=== PATIENT | male | born 1955 | race Caucasian/White ===

== ENCOUNTER 2017-05-17 07:48 | Emergency (ER) | payer MEDICAID, MEDICARE ==
--- NOTE | 2017-05-17 09:36 | RADIOLOGY REPORT (SQ) ---
EXAM DESCRIPTION: CHEST PA/LAT COMPLETED DATE/TIME: 05/17/2017 8:40 am REASON FOR STUDY: cough, fever COMPARISON: CT abdomen pelvis 10/21/2014 Two-view chest 04/21/2015, 11/06/2015 EXAM PARAMETERS: NUMBER OF VIEWS: two views TECHNIQUE: Digital Frontal and Lateral radiographic views of the chest acquired. RADIATION DOSE: NA LIMITATIONS: none FINDINGS: LUNGS AND PLEURA: No opacities, masses or pneumothorax. No pleural effusion. MEDIASTINUM AND HILAR STRUCTURES: Promise unremarkable. Small retrocardiac hiatal hernia. HEART AND VASCULAR STRUCTURES: Heart normal size. No evidence for failure. Old sternotomy and CABG BONES: No acute findings. HARDWARE: Lower cervical fusion. Old T12 compression deformity unchanged from 2014 OTHER: No other significant finding. IMPRESSION: Old sternotomy and CABG. Small hiatal hernia. No acute infiltrates TECHNICAL DOCUMENTATION: JOB ID: [id number] [email or web address]- All Rights Reserved
[2017-05-17] MEDS ORDERED: IPRATROPIUM/ALBUTEROL 0.5-2.5 MG/3 ML AMPUL NEB ONE (10:08)
--- NOTE | 2017-05-17 10:11 | ER Document Report ---
ED General - General Chief Complaint: Productive Cough Stated Complaint: COUGH Time Seen by Provider: 05/17/17 08:02 Notes: 62 yr old male presents today with complaints of dry cough, nasal congestion, sinus pressure and headache x1 day Pain 5/10, achy and constant. Denies any rashes. Tried otc cold medications without relief. reports fevers and chills. Eating and drinking ok. Worse when laying flat, better when upright. Vaccinations are UTD. Denies any cp, sob, n/v/d, abd pain, dysuria and hemturia. former smoker, quit 8 months ago. smoker [id number] years. TRAVEL OUTSIDE OF THE [place] IN LAST 30 DAYS: No - Related Data Allergies/Adverse Reactions: ampicillin [Ampicillin] Allergy (Verified 05/17/17 07:51) Past Medical History - General Information source: Patient, Friend - Social History Smoking Status: Former Smoker Chew tobacco use (# tins/day): No Frequency of alcohol use: None Drug Abuse: None Family History: Reviewed & Not Pertinent Patient has suicidal ideation: No Patient has homicidal ideation: No - Past Medical History Cardiac Medical History: Reports: Hx Coronary Artery Disease, Hx Hypercholesterolemia, Hx Hypertension, Hx Peripheral Vascular Disease Renal/ Medical History: Denies: Hx Peritoneal Dialysis GI Medical History: Reports: Hx Gastroesophageal Reflux Disease Past Surgical History: Reports: Hx Cardiac Surgery, Hx Coronary Artery Bypass Graft, Hx Open Heart Surgery - TRIPLE BYPASS 11/03, Hx Orthopedic Surgery - Descriptive and cervical spine, Hx Vascular Surgery - Stents to bilateral lower extremities, L. CAROTID ENDARTERECTOMY - Immunizations Hx Diphtheria, Pertussis, Tetanus Vaccination: Yes Review of Systems - Review of Systems Constitutional: See HPI Cardiovascular: No symptoms reported Respiratory: See HPI, Cough Gastrointestinal: No symptoms reported Genitourinary: No symptoms reported Male Genitourinary: No symptoms reported Musculoskeletal: No symptoms reported Skin: No symptoms reported Hematologic/Lymphatic: No symptoms reported Neurological/Psychological: No symptoms reported -: Yes All other systems reviewed and negative Physical Exam - Vital signs Vitals: Temp Pulse Resp BP Pulse Ox 97.7 F 74 18 127/88 H 99 05/17/17 07:55 05/17/17 07:55 05/17/17 07:55 05/17/17 07:55 05/17/17 07:55 - General General appearance: Appears well In distress: None - HEENT Head: Normocephalic Cornea: Normal Pupils: PERRL Ears: Normal External canal: Normal Tympanic membrane: Bulging Sinus: Normal Nasal: Normal Mouth/Lips: Normal Pharynx: Erythema Neck: Normal - Respiratory Respiratory status: No respiratory distress Chest status: Nontender Breath sounds: Nonproductive cough, Wheezing - cleared after breathing treatment Chest palpation: Normal - Cardiovascular Rhythm: Regular Heart sounds: Normal auscultation Murmur: No Normal capillary refill: Yes - Abdominal Inspection: Normal Distension: No distension Bowel sounds: Normal Tenderness: Nontender - Back Back: Normal - Skin Skin Temperature: Warm Skin Moisture: Dry Skin Color: Normal Course - Re-evaluation Re-evalutation: After performing a Medical Screening Examination, I estimate there is LOW risk for ACUTE CORONARY SYNDROME, PULMONARY EMBOLI, RESPIRATORY FAILURE, SEPSIS OR MENINGITIS, thus I consider the discharge disposition reasonable. I have reevaluated this patient multiple times and no significant life threatening changes are noted. The patient and I have discussed the diagnosis and risks, and we agree with discharging home with close follow-up. We also discussed returning to the Emergency Department immediately if new or worsening symptoms occur. We have discussed the symptoms which are most concerning (e.g., changing or worsening pain, trouble swallowing or breathing, neck stiffness, fever) that necessitate immediate return. - Vital Signs Vital signs: Temp Pulse Resp BP Pulse Ox 97.6 F 63 18 131/85 H 99 05/17/17 10:45 05/17/17 10:45 05/17/17 07:55 05/17/17 10:45 05/17/17 10:45 Discharge - Discharge Clinical Impression: URI with cough and congestion Clinical Impression: (Ruled Out): Acute bacterial bronchitis Condition: Good Disposition: HOME, SELF-CARE Instructions: Upper Respiratory Illness ([facility]) Additional Instructions: take medication as directed follow up with PCP within 3 days return to ER if s/s worsen Prescriptions: Benzonatate [Tessalon Perle 100 mg Capsule] 100 mg PO Q8HP PRN #20 cap PRN Reason: Albuterol Sulfate [Ventolin Hfa] 1 - 2 puff IH Q4 PRN #1 [id number] PRN Reason: Prednisone 20 mg PO BID #10 tablet Referrals: DIANA STRONG DO [Primary Care Provider] - Follow up as needed
[2017-05-17 10:54] VITALS: BP 131/85
== END 2017-05-17 10:55 | disposition home or self-care (01) ==
LOC: ER 07:48
DX: J06.9 Acute upper respiratory infection, unspecified (principal); R05 Cough; R09.81 Nasal congestion; R51 Headache; Z87.891 Personal history of nicotine dependence
CPT/HCPCS: 94640; 99283; 71020; A9270; J7620

== ENCOUNTER 2017-05-23 07:44 | Emergency (ER) | payer MEDICARE ==
[2017-05-23] MEDS ORDERED: ACETAMINOPHEN 325 MG TABLET PO ONE (08:43)
--- NOTE | 2017-05-23 09:08 | RADIOLOGY REPORT (SQ) ---
EXAM DESCRIPTION: CHEST PA/LAT COMPLETED DATE/TIME: 05/23/2017 8:52 am REASON FOR STUDY: Cough, Shortness of Breath COMPARISON: 05/17/2017 NUMBER OF VIEWS: Two view. TECHNIQUE: Frontal and lateral radiographic views of the chest acquired. LIMITATIONS: None. FINDINGS: LUNGS AND PLEURA: No opacities, masses or pneumothorax. No pleural effusion. MEDIASTINUM AND HILAR STRUCTURES: No masses or contour abnormalities. HEART AND VASCULATURE: Heart normal size. No evidence for failure. Prior CABG. BONES: No acute findings. HARDWARE: CABG hardware. OTHER: No other significant finding. IMPRESSION: NO SIGNIFICANT RADIOGRAPHIC FINDING IN THE CHEST. PRIOR CABG. TECHNICAL DOCUMENTATION: JOB ID: [id number] [employer] All Rights Reserved
--- NOTE | 2017-05-23 09:43 | ER Document Report ---
ED Respiratory Problem - General Mode of Arrival: Ambulatory Information source: Patient TRAVEL OUTSIDE OF THE [place] IN LAST 30 DAYS: No - General Chief Complaint: Productive Cough Stated Complaint: COUGH Time Seen by Provider: 05/23/17 09:28 Notes: Patient is a 62-year-old male that presents to the emergency department today for a persistent cough for the last 6 days. Patient was seen here 6 days ago for the same symptoms and was discharged with a prescription for Tessalon Perles , prednisone, and albuterol. Patient states he did not fill the Tessalon or albuterol inhalers as he cannot afford them. Patient states his has an albuterol inhaler so he tried it once a day which did not seem to help. Patient states he is now having light green colored sputum production. Patient states he feels like he got worse when he ran out of prednisone. (ARISTEO ADAN) - Related Data Allergies/Adverse Reactions: ampicillin [Ampicillin] Allergy (Verified 05/17/17 07:51) Past Medical History - General Information source: Patient, [facility] Records - Social History Smoking Status: Former Smoker Cigarette use (# per day): No Frequency of alcohol use: None Drug Abuse: None Lives with: Family Family History: Reviewed & Not Pertinent Patient has suicidal ideation: No Patient has homicidal ideation: No - Past Medical History Cardiac Medical History: Reports: Hx Coronary Artery Disease, Hx Hypercholesterolemia, Hx Hypertension, Hx Peripheral Vascular Disease GI Medical History: Reports: Hx Gastroesophageal Reflux Disease Past Surgical History: Reports: Hx Cardiac Surgery, Hx Coronary Artery Bypass Graft, Hx Open Heart Surgery - TRIPLE BYPASS 11/03, Hx Orthopedic Surgery - Descriptive and cervical spine, Hx Vascular Surgery - Stents to bilateral lower extremities, L. CAROTID ENDARTERECTOMY - Immunizations Hx Diphtheria, Pertussis, Tetanus Vaccination: Yes Review of Systems - Review of Systems Constitutional: denies: Fever EENT: No symptoms reported Cardiovascular: No symptoms reported Respiratory: See HPI, Cough Gastrointestinal: No symptoms reported Genitourinary: No symptoms reported Male Genitourinary: No symptoms reported Musculoskeletal: No symptoms reported Skin: No symptoms reported Hematologic/Lymphatic: No symptoms reported Neurological/Psychological: No symptoms reported -: Yes All other systems reviewed and negative Physical Exam - Vital signs Vitals: Temp Pulse Resp BP Pulse Ox 98.2 F 101 H 18 139/92 H 100 05/23/17 07:50 05/23/17 07:50 05/23/17 07:50 05/23/17 07:50 05/23/17 07:50 - Notes Notes: Physical Exam: General: Alert, appears well. HEENT: Normocephalic. Atraumatic. PERRL. Extraocular movements intact. Oropharynx clear. Neck: Supple. Non-tender. Respiratory: No respiratory distress. Rhonchi bilaterally, faint wheeze bilaterally consistent with extensive smoking history. Cardiovascular: Regular rate and rhythm. Abdominal: Normal Inspection. Non-tender. No distension. Normal Bowel Sounds. Back: Non-tender. No deformity or step off. Extremities: Moves all four extremities. Upper extremities: Normal inspection. Normal ROM. Lower extremities: Normal inspection. No edema. Normal ROM. Neurological: Normal cognition. AAOx4. Normal speech. Psychological: Normal affect. Normal Mood. Skin: Warm. Dry. Normal color. (ARISTEO ADAN) Course - Re-evaluation Re-evalutation: 05/23/17 11:42 After the DuoNeb treatment, the patient's lungs are clear when I have him cough. He does have a dry cough. He states that his breathing to him feels much better when he breathes in deep after the breathing treatment. (SAVANNAH RILEY) - Vital Signs Vital signs: Temp Pulse Resp BP Pulse Ox 97.8 F 95 16 150/82 H 98 05/23/17 11:34 05/23/17 11:34 05/23/17 11:34 05/23/17 11:34 05/23/17 11:34 Discharge - Discharge Clinical Impression: Acute bronchitis with bronchospasm Condition: Stable Disposition: HOME, SELF-CARE Additional Instructions: Bronchitis with Bronchospasm (Wheezing) You have bronchitis with bronchospasm (wheezing). Sometimes people develop wheezing with a chest cold. This occurs either because of an underlying tendency toward asthma or because the virus itself irritates the bronchial tubes. This irritation causes cough, shortness of breath, and wheezing. Emergency treatment of bronchospasm may include adrenaline shots or bronchodilator aerosol. You may feel lightheaded and have a rapid pulse for an hour or two. Rest and get plenty of fluids. At home, we'll treat you with a bronchodilator inhaler. Corticosteroids may be required for some patients. Until you recover, avoid chemical fumes, dusts, pollens, and exercising in very cold or dry air. If you smoke, stop now! Most cases of bronchitis get better without antibiotics. We prescribe antibiotics when we believe bacteria are damaging your airways, or if there's high risk the bronchitis will worsen into pneumonia. Increase your fluid intake. A cool mist humidifier may make your lungs more comfortable. An expectorant (cough medicine that loosens phlegm) can help. Repeated episodes of bronchitis and bronchospasm may result in lung damage -- for example, chronic bronchitis, recurrent pneumonias, or emphysema. If you develop a fever, increased wheezing, chest pain, or severe shortness of breath, you should contact the doctor immediately. //////////////////////////////////////////////////////////////////////////////// //////////////////////////////////////////////////////////////////////////////// ////////////////// Start the Prednisone and the Azithromycin tomorrow as prescribed. 2 puffs every 4 hours for today and then 2 puffs every 4-6 hours as needed starting tomorrow. Try Robitussin-DM to help suppress your cough. Drink plenty of fluids and get plenty of rest. Follow-up with your doctor if not improving next week. RETURN TO THE EMERGENCY ROOM IF ANY NEW OR WORSENING SYMPTOMS. Prescriptions: Azithromycin [Zithromax 250 mg Tablet] 250 mg PO DAILY #4 tablet Prednisone [Deltasone 10 mg Tablet] 10 mg PO ASDIR PRN #21 tablet PRN Reason: Referrals: DIANA STRONG DO [Primary Care Provider] - Follow up as needed Scribe Attestation: 05/23/17 11:46 I personally performed the services described in the documentation, reviewed and edited the documentation which was dictated to the scribe in my presence, and it accurately records my words and actions. (SAVANNAH RILEY) Scribe Documentation - Scribe Written by Addy:: Addy Hou, 05/23/2017 1034 acting as scribe for :: Cristel
[2017-05-23] MEDS ORDERED: PREDNISONE 20 MG TABLET PO ONE (09:44)
[2017-05-23] MEDS ORDERED: IPRATROPIUM/ALBUTEROL 0.5-2.5 MG/3 ML AMPUL NEB ONE (09:44)
[2017-05-23] MEDS ORDERED: AZITHROMYCIN 250 MG TABLET PO ONE (09:45)
[2017-05-23 11:35] VITALS: BP 150/82
[2017-05-23] MEDS ORDERED: ALBUTEROL SULFATE HFA (90 MCG/PUFF) 8 GM MDI (1 MDI/ER DISP) IH ONE (11:47)
== END 2017-05-23 12:00 | disposition home or self-care (01) ==
LOC: ER 07:44
DX: J20.9 Acute bronchitis, unspecified (principal); R05 Cough; Z87.891 Personal history of nicotine dependence
CPT/HCPCS: 94640; 99284; 87804; 71020; A9270 ×4; J3490; J7512; J7620

== ENCOUNTER 2017-11-29 21:33 | Emergency (ER) | payer MEDICARE, OTHER ==
--- NOTE | 2017-11-29 23:09 | ER Document Report ---
ED Medical Screen (RME) - General Chief Complaint: Productive Cough Stated Complaint: COUGH/HEAD PAIN Time Seen by Provider: 11/29/17 23:01 Mode of Arrival: Ambulatory Information source: Patient Notes: Patient is a 62-year-old male who presents with 1 day history of productive cough, chills, nasal congestion and right ear pain. Patient reports that he is coughing up whitish green mucus. Patient reports he has had a history of pneumonia in the past and feels like this is similar. Patient also reports medical history of triple bypass in 2013 and a history of DVTs. Exam: Lung sounds clear to auscultation bilaterally, no wheezes or rhonchi noted. No tenderness to palpation over maxillary and frontal sinuses. Right tympanic membrane obscured by large amount of cerumen. Left tympanic membrane unremarkable. I have greeted and performed a rapid initial assessment of this patient. A comprehensive ED assessment and evaluation of the patient, analysis of test results and completion of the medical decision making process will be conducted by additional ED providers. Dictation of this chart was performed using voice recognition software; therefore, there may be some unintended grammatical errors. TRAVEL OUTSIDE OF THE [place] IN LAST 30 DAYS: No - Related Data Allergies/Adverse Reactions: ampicillin [Ampicillin] Allergy (Verified 05/17/17 07:51) Past Medical History - General Information source: Patient - Social History Family history: Reviewed & Not Pertinent - Past Medical History Cardiac Medical History: Reports: Hx Coronary Artery Disease, Hx Hypercholesterolemia, Hx Hypertension, Hx Peripheral Vascular Disease Renal/ Medical History: Denies: Hx Peritoneal Dialysis GI Medical History: Reports: Hx Gastroesophageal Reflux Disease Past Surgical History: Reports: Hx Cardiac Surgery, Hx Coronary Artery Bypass Graft, Hx Open Heart Surgery - TRIPLE BYPASS 11/03, Hx Orthopedic Surgery - Descriptive and cervical spine, Hx Vascular Surgery - Stents to bilateral lower extremities, L. CAROTID ENDARTERECTOMY - Immunizations Hx Diphtheria, Pertussis, Tetanus Vaccination: Yes Physical Exam - Vital signs Vitals: Temp Pulse Resp BP Pulse Ox 98.9 F 78 16 133/90 H 98 11/29/17 21:46 11/29/17 21:46 11/29/17 21:46 11/29/17 21:46 11/29/17 21:46 Course - Vital Signs Vital signs: Temp Pulse Resp BP Pulse Ox 98.9 F 78 16 133/90 H 98 11/29/17 21:46 11/29/17 21:46 11/29/17 21:46 11/29/17 21:46 11/29/17 21:46 Doctor's Discharge - Discharge Referrals: DIANA STRONG DO [Primary Care Provider] - Follow up as needed
--- NOTE | 2017-11-29 23:23 | ER Document Report ---
ED Respiratory Problem - General Chief Complaint: Productive Cough Stated Complaint: COUGH/HEAD PAIN Time Seen by Provider: 11/29/17 23:01 Mode of Arrival: Ambulatory Notes: The patient is a 62-year-old male, former smoker, CAD, presents with 2 days of a dry cough and 8 hours of a productive cough. He is also having sinus congestion and right ear fullness. He is concerned that he developed pneumonia. He denies fevers, chills, nausea, vomiting, chest pain, hemoptysis, back pain, syncope, leg swelling or recent travel. His has similar symptoms. TRAVEL OUTSIDE OF THE [place] IN LAST 30 DAYS: No - Related Data Allergies/Adverse Reactions: ampicillin [Ampicillin] Allergy (Verified 05/17/17 07:51) Past Medical History - General Information source: Patient - Social History Smoking Status: Former Smoker Family History: Reviewed & Not Pertinent - Past Medical History Cardiac Medical History: Reports: Hx Coronary Artery Disease, Hx Hypercholesterolemia, Hx Hypertension, Hx Peripheral Vascular Disease Renal/ Medical History: Denies: Hx Peritoneal Dialysis GI Medical History: Reports: Hx Gastroesophageal Reflux Disease Past Surgical History: Reports: Hx Cardiac Surgery, Hx Coronary Artery Bypass Graft, Hx Open Heart Surgery - TRIPLE BYPASS 11/03, Hx Orthopedic Surgery - Descriptive and cervical spine, Hx Vascular Surgery - Stents to bilateral lower extremities, L. CAROTID ENDARTERECTOMY - Immunizations Hx Diphtheria, Pertussis, Tetanus Vaccination: Yes Review of Systems - Review of Systems Notes: REVIEW OF SYSTEMS: CONSTITUTIONAL: -fevers, -chills EENT: -eye pain, -difficulty swallowing, +right ear fullness, +nasal congestion CARDIOVASCULAR: -chest pain, -syncope. RESPIRATORY: +cough, -SOB GASTROINTESTINAL: -abdominal pain, -nausea, -vomiting, -diarrhea GENITOURINARY: -dysuria, -hematuria MUSCULOSKELETAL: -back pain, -neck pain SKIN: -rash or skin lesions. HEMATOLOGIC: -easy bruising or bleeding. LYMPHATIC: -swollen, enlarged glands. NEUROLOGICAL: -altered mental status or loss of consciousness, -headache, - neurologic symptoms PSYCHIATRIC: -anxiety, -depression. ALL OTHER SYSTEMS REVIEWED AND NEGATIVE. Physical Exam - Vital signs Vitals: Temp Pulse Resp BP Pulse Ox 98.9 F 78 16 133/90 H 98 11/29/17 21:46 11/29/17 21:46 11/29/17 21:46 11/29/17 21:46 11/29/17 21:46 - Notes Notes: PHYSICAL EXAMINATION: GENERAL: Well-appearing, well-nourished and in no acute distress. HEAD: Atraumatic, normocephalic. EYES: Pupils equal round and reactive to light, extraocular movements intact, sclera anicteric, conjunctiva are normal. ENT: Right ear with cerumen, unable to visualize right TM. Normal left TM. nares patent with swollen turbinates, oropharynx clear without exudates. Moist mucous membranes. NECK: Normal range of motion, supple without lymphadenopathy LUNGS: No respiratory distress. Faint end-expiratory wheezes. HEART: Regular rate and rhythm without murmurs ABDOMEN: Soft, nontender, normoactive bowel sounds. No guarding, no rebound. No masses appreciated. EXTREMITIES: Normal range of motion, no pitting or edema. No cyanosis. NEUROLOGICAL: Cranial nerves grossly intact. Normal speech, normal gait. Normal sensory and motor exams. PSYCH: Normal mood, normal affect. SKIN: Warm, Dry, normal turgor, no rashes or lesions noted. Course - Re-evaluation Re-evalutation: Patient appears well and is in no respiratory distress. His mild end- expiratory wheeze resolved after DuoNebs and steroids. Chest x-ray does not show any focal infiltrates and he does not have a fever. No risk factors for PE. Instructed him about treatment of his suspected viral bronchitis with steroids and albuterol. He will follow-up with his primary care physician for recheck of his symptoms this week. - Vital Signs Vital signs: Temp Pulse Resp BP Pulse Ox 98.9 F 78 16 133/90 H 98 11/29/17 21:46 11/29/17 21:46 11/29/17 21:46 11/29/17 21:46 11/29/17 21:46 - Diagnostic Test Radiology reviewed: Image reviewed, Reports reviewed Radiology results interpreted by me: CXR: NAD Discharge - Discharge Clinical Impression: Bronchitis Condition: Stable Additional Instructions: BRONCHITIS WITH BRONCHOSPASM (WHEEZING): You have bronchitis with bronchospasm (wheezing). Sometimes people develop wheezing with a chest cold. This occurs either because of an underlying tendency toward asthma or because the virus itself irritates the bronchial tubes. This irritation causes cough, shortness of breath, and wheezing. Emergency treatment of bronchospasm may include adrenaline shots or bronchodilator aerosol. You may feel lightheaded and have a rapid pulse for an hour or two. Rest and get plenty of fluids. At home, we'll treat you with a bronchodilator inhaler. Corticosteroids may be required for some patients. Until you recover, avoid chemical fumes, dusts, pollens, and exercising in very cold or dry air. If you smoke, stop now! Most cases of bronchitis get better without antibiotics. We prescribe antibiotics when we believe bacteria are damaging your airways, or if there's high risk the bronchitis will worsen into pneumonia. Increase your fluid intake. A cool mist humidifier may make your lungs more comfortable. An expectorant (cough medicine that loosens phlegm) can help. Repeated episodes of bronchitis and bronchospasm may result in lung damage -- for example, chronic bronchitis, recurrent pneumonias, or emphysema. If you develop a fever, increased wheezing, chest pain, or severe shortness of breath, you should contact the doctor immediately. INHALED BRONCHODILATORS: You have received a treatment of and/or prescription for an inhaled bronchodilator -- a medication which stimulates the airways in the lung to dilate. This improves the flow of air in asthma, bronchitis, and emphysema. These medicines have some similarity to adrenaline, and can cause similar side effects: shakiness, racing heart, and a sense of nervousness. These side effects decrease with time. Contact your doctor if these side effects are severe. Do not over-use the medicine. Too-frequent use of the inhaler may make it ineffective. Call your doctor if the inhaler is not controlling your symptoms at the prescribed doses. STEROID MEDICATION: You have been given an injection of or oral medicine of the cortisone/ steroid class. This medication is used to control inflammation or allergy. Blayne t is usually only given for a short period of time, until the acute process subsides. There are usually no side effects from short-term use of cortisone-like medications. Some persons feel an increased sense of well-being and are not sleepy at bedtime. Long-term use of cortisone medications is best avoided, unless required for a severe condition. If your condition does not remit, or relapses after the course of corticosteroid medication, you should consult your physician. USE OF ACETAMINOPHEN (Tylenol): Acetaminophen may be taken for pain relief or fever control. It's much safer than aspirin, offering a wider range of "safe" dosages. It is safe during . Some brand names are Tylenol, Panadol, Datril, Anacin 3, Tempra, and Liquiprin. Acetaminophen can be repeated every four hours. The following are maximum recommended dosages: >89 pounds or adults 650 mg to 900 mg Acetaminophen can be repeated every four hours. Maximum dose not to exceed 4000 mg a day. SMOKING: If you smoke, you should stop smoking. The tar and chemicals in cigarette smoke are harmful. Smoking has been shown to cause: emphysema chronic bronchitis lung cancer mouth and throat cancer stomach and pancreas cancer premature aging defects In addition, smoking increases ear and lung infections in children of smokers. FOLLOW-UP CARE: If you have been referred to a physician for follow-up care, call the physician s office for an appointment as you were instructed or within the next two days. If you experience worsening or a significant change in your symptoms, notify the physician immediately or return to the Emergency Department at any time for re-evaluation. Prescriptions: Albuterol Sulfate [Proair HFA Inhalation Aerosol 8.5 gm MDI] 2 puff IH Q4H PRN # 1 mdi PRN Reason: Prednisone [Deltasone 20 mg Tablet] 3 tab PO DAILY 4 Days tablet Forms: Elevated Blood Pressure Referrals: DIANA STRONG DO [Primary Care Provider] - Follow up as needed
[2017-11-29] MEDS ORDERED: PREDNISONE 20 MG TABLET PO ONE (23:46)
[2017-11-29] MEDS ORDERED: ALBUTEROL SULFATE HFA (90 MCG/PUFF) 8 GM MDI (1 MDI/ER DISP) IH PRN (23:46)
[2017-11-29] MEDS ORDERED: IPRATROPIUM/ALBUTEROL 0.5-2.5 MG/3 ML AMPUL NEB ONE (23:46)
[2017-11-30 01:18] VITALS: BP 108/76
== END 2017-11-30 01:22 | disposition home or self-care (01) ==
LOC: ER 21:33
DX: J40 Bronchitis, not specified as acute or chronic (principal); R06.2 Wheezing; R05 Cough; R09.81 Nasal congestion; I25.10 Atherosclerotic heart disease of native coronary artery without angina pectoris; I10 Essential (primary) hypertension; Z87.891 Personal history of nicotine dependence; Z88.0 Allergy status to penicillin
CPT/HCPCS: 94640; 99283; 71046; A9270 ×2; J3490; J7512; J7620

== ENCOUNTER 2017-12-08 18:03 | Emergency (ER) | payer MEDICARE, OTHER ==
--- NOTE | 2017-12-08 18:39 | ER Document Report ---
ED Medical Screen (RME) - General Chief Complaint: Cough Stated Complaint: COUGH Time Seen by Provider: 12/08/17 18:31 Notes: Patient is a 62-year-old male, past medical history former smoker, CAD, presents with increased cough and shortness of breath over the past few days. He was seen in the ER 9 days ago for similar symptoms and history for bronchitis with steroids and DuoNeb's mildly better, but then felt worse. He used albuterol 1 hour prior to arrival. PE: Tachycardia, mild tachypnea, lungs CTAB I have greeted and performed a rapid initial assessment of this patient. A comprehensive ED assessment and evaluation of the patient, analysis of test results and completion of the medical decision making process will be conducted by additional ED providers. TRAVEL OUTSIDE OF THE [place] IN LAST 30 DAYS: No - Related Data Allergies/Adverse Reactions: ampicillin [Ampicillin] Allergy (Verified 12/08/17 18:34) Past Medical History - Social History Chew tobacco use (# tins/day): No Frequency of alcohol use: None Drug Abuse: None Family history: Reviewed & Not Pertinent - Past Medical History Cardiac Medical History: Reports: Hx Coronary Artery Disease, Hx Hypercholesterolemia, Hx Hypertension, Hx Peripheral Vascular Disease Pulmonary Medical History: Reports: Hx Pneumonia - 2016 Renal/ Medical History: Denies: Hx Peritoneal Dialysis GI Medical History: Reports: Hx Gastroesophageal Reflux Disease Past Surgical History: Reports: Hx Cardiac Surgery, Hx Coronary Artery Bypass Graft, Hx Open Heart Surgery - TRIPLE BYPASS 11/03, Hx Orthopedic Surgery - Descriptive and cervical spine, Hx Vascular Surgery - Stents to bilateral lower extremities, L. CAROTID ENDARTERECTOMY - Immunizations Hx Diphtheria, Pertussis, Tetanus Vaccination: Yes Physical Exam - Vital signs Vitals: Temp Pulse Resp BP Pulse Ox 98.4 F 110 H 22 H 153/90 H 98 12/08/17 18:08 12/08/17 18:08 12/08/17 18:08 12/08/17 18:08 12/08/17 18:08 Course - Vital Signs Vital signs: Temp Pulse Resp BP Pulse Ox 98.4 F 110 H 22 H 153/90 H 98 12/08/17 18:08 12/08/17 18:08 12/08/17 18:08 12/08/17 18:08 12/08/17 18:08 Doctor's Discharge - Discharge Referrals: DIANA STRONG DO [Primary Care Provider] - Follow up as needed
--- NOTE | 2017-12-08 19:09 | RADIOLOGY REPORT (SQ) ---
EXAM DESCRIPTION: CHEST SINGLE VIEW COMPLETED DATE/TIME: 12/08/2017 6:45 pm REASON FOR STUDY: SOB COMPARISON: 11/29/2017 EXAM PARAMETERS: NUMBER OF VIEWS: One view. TECHNIQUE: Single frontal radiographic view of the chest acquired. RADIATION DOSE: NA LIMITATIONS: None. FINDINGS: LUNGS AND PLEURA: No opacities, masses or pneumothorax. No pleural effusion. MEDIASTINUM AND HILAR STRUCTURES: No masses. Contour normal. HEART AND VASCULAR STRUCTURES: Heart normal in size. Normal vasculature. BONES: No acute findings. HARDWARE: Patient is status post median sternotomy with coronary bypass surgery. Orthopedic hardware is identified in the lower cervical spine OTHER: What may represent a small hiatal hernia is again identified. IMPRESSION: No significant interval change. No acute findings. Other findings as noted above TECHNICAL DOCUMENTATION: JOB ID: [id number] [employer]- All Rights Reserved Reading location - IP/workstation name: [email or web address]
[2017-12-08 20:16] LABS: ABSOLUTE EOSINOPHILS # (AUTO) 0.2 10^3/uL (0.0-0.6); ABSOLUTE LYMPHOCYTES (AUTO) 2.8 10^3/uL (0.5-4.7); ABSOLUTE NEUT (AUTO) 10.2 10^3/uL (1.7-8.2); BASOPHILS % (AUTO) 0.3 % (0-2); EOSINOPHILS % (AUTO) 1.1 % (0-6); HEMATOCRIT 48.8 % (37.9-51.0); HEMOGLOBIN 16.5 g/dL (13.5-17.0); LYMPHOCYTES % (AUTO) 18.4 % (13-45); MEAN CORPUSCULAR HGB CONC 33.9 g/dL (32.0-36.0); MEAN CORPUSCULAR VOLUME 92 fl (80-97); PLATELET COUNT 234 10^3/uL (150-450); RED BLOOD COUNT 5.33 10^6/uL (4.35-5.55); RED CELL DISTRIBUTION WIDTH 13.6 % (11.5-14.0); SEGMENTED NEUTROPHILS % (AUTO) 67.2 % (42-78); TOTAL CELLS COUNTED % (AUTO) 100 %; WHITE BLOOD COUNT 15.1 10^3/uL (4.0-10.5)
[2017-12-08] MEDS ORDERED: NORMAL SALINE 1000 ML 1,000 ML IV ONE ×2 (20:20→20:36)
[2017-12-08 20:26] LABS: ALANINE AMINOTRANSFERASE 36 U/L (21-72); ALBUMIN 4.1 g/dL (3.5-5.0); ALKALINE PHOSPHATASE 134 U/L (38-126); ANION GAP 12 (5-19); ASPARTATE AMINO TRANSFERASE 23 U/L (17-59); BILIRUBIN,DIRECT 0.4 mg/dL (0.0-0.4); BILIRUBIN,TOTAL 2.2 mg/dL (0.2-1.3); BLOOD UREA NITROGEN 9 mg/dL (7-20); CALCIUM 9.4 mg/dL (8.4-10.2); CARBON DIOXIDE 30 mmol/L (22-30); CHLORIDE 98 mmol/L (98-107); CREATINE KINASE 97 U/L (55-170); GLUCOSE 100 mg/dL (75-110); POTASSIUM 4.6 mmol/L (3.6-5.0); SODIUM 140.4 mmol/L (137-145); TOTAL PROTEIN 7.3 g/dL (6.3-8.2)
[2017-12-08] MEDS ORDERED: LIDOCAINE 1% INJ-PF (10 MG/ML) 30 ML SDV NEB ONE (20:35)
[2017-12-08] MEDS ORDERED: BENZONATATE 100 MG CAPSULE PO ONE (20:36)
--- NOTE | 2017-12-08 21:42 | RADIOLOGY REPORT (SQ) ---
EXAM DESCRIPTION: CTA CHEST COMPLETED DATE/TIME: 12/08/2017 9:28 pm REASON FOR STUDY: elevated d dimer COMPARISON: Chest x-ray 12/08/2017 TECHNIQUE: CT scan of the chest performed using helical scanning technique with dynamic intravenous contrast injection. Images reviewed with lung, soft tissue and bone windows. Reconstructed coronal and sagittal MPR images reviewed. Additional 3 dimensional post-processing performed to develop Maximal Intensity Projection images (ID P). All images stored on PACS. All CT scanners at this facility use dose modulation, iterative reconstruction, and/or weight based d osing when appropriate to reduce radiation dose to as low as reasonably achievable (ALARA). [facility]: Dose Right [facility]: CareDose [facility]: Dose Right [facility]: Teradose 4D [facility]: Nexidia CONTRAST TYPE AND DOSE: contrast/concentration: Isovue 370.00 mg/ml; Total Contrast Delivered: 61.0 ml; Total Saline Delivered: 70.0 ml Contrast bolus optimized for the pulmonary arteries. Not diagnostic for the aorta. RENAL FUNCTION: BUN 19 creatinine 0.9 RADIATION DOSE: CT Rad equipment meets quality standard of care and radiation dose reduction techniq ues were employed. CTDIvol: 15.9 - 26.4 mGy. DLP: 607 mGy-cm. . LIMITATIONS: Poor opacification of the pulmonary arteries. FINDINGS: LUNGS AND PLEURA: Small hiatal hernia. AORTA AND GREAT VESSELS: No aneurysm. No dissection. HEART: No pericardial effusion. No significant coronary artery calcifications. PULMONARY ARTERIES: No emboli visualized in the main pulmonary arteries or the segmental branches. HILAR AND MEDIASTINAL STRUCTURES: No identified masses or abnormal nodes. HARDWARE: Sternotomy wires. Graft markers. UPPER ABDOMEN: There appear to be some tiny gallstones. THYROID AND OTHER SOFT TISSUES: No masses. No adenopathy. BONES: Old compression changes in lower thoracic spine no osseous lesions. 3D MIPS: Confirm above findings. OTHER: No other significant finding. IMPRESSION: 1. No obvious pulmonary emboli in this slightly limited study. 2. No aortic aneurysm or dissection. 3. Small hiatal hernia. COMMENT: Quality ID # [id number]: Final reports with documentation of one or more dose reduction techniques (e.g., Automated exposure control, adjustment of the mA and/or kV according to patient size, use of iterative reconstruction technique) TECHNICAL DOCUMENTATION: JOB ID: [id number] [employer]- All Rights Reserved Reading location - IP/workstation name: [email or web address]
--- NOTE | 2017-12-08 21:51 | EKG REPORT ---
SEVERITY:- NORMAL ECG - SINUS RHYTHM : Confirmed by: Elba Berry MD 08-Dec-2017 21:50:42
--- NOTE | 2017-12-08 23:54 | ER Document Report ---
ED General - General Chief Complaint: Cough Stated Complaint: COUGH Time Seen by Provider: 12/08/17 18:31 TRAVEL OUTSIDE OF THE [place] IN LAST 30 DAYS: No - HPI Patient complains to provider of: Cough Notes: Patient coming in for evaluation of cough. Patient states cough ongoing since he was seen last time diagnosed with bronchitis states he was compliant with his steroids and is finished him states slight improvement since taking steroids however he does continue to have a cough. Patient also complains of postnasal drip. Patient states he has been sleeping with a fan on patient otherwise states feels unwell with myalgias denies any recent travel denies any sick contacts denies any fevers chills nausea vomiting diarrhea - Related Data Allergies/Adverse Reactions: ampicillin [Ampicillin] Allergy (Verified 12/08/17 18:34) Past Medical History - Social History Smoking Status: Never Smoker Chew tobacco use (# tins/day): No Frequency of alcohol use: None Drug Abuse: None Family History: Reviewed & Not Pertinent Patient has suicidal ideation: No Patient has homicidal ideation: No - Past Medical History Cardiac Medical History: Reports: Hx Coronary Artery Disease, Hx Hypercholesterolemia, Hx Hypertension, Hx Peripheral Vascular Disease Pulmonary Medical History: Reports: Hx Pneumonia - 2016 Renal/ Medical History: Denies: Hx Peritoneal Dialysis GI Medical History: Reports: Hx Gastroesophageal Reflux Disease Past Surgical History: Reports: Hx Cardiac Surgery, Hx Coronary Artery Bypass Graft, Hx Open Heart Surgery - TRIPLE BYPASS 11/03, Hx Orthopedic Surgery - Descriptive and cervical spine, Hx Vascular Surgery - Stents to bilateral lower extremities, L. CAROTID ENDARTERECTOMY - Immunizations Hx Diphtheria, Pertussis, Tetanus Vaccination: Yes Review of Systems - Review of Systems Constitutional: No symptoms reported EENT: No symptoms reported Cardiovascular: No symptoms reported Respiratory: Cough Gastrointestinal: No symptoms reported Genitourinary: No symptoms reported Male Genitourinary: No symptoms reported Musculoskeletal: Muscle pain Skin: No symptoms reported Hematologic/Lymphatic: No symptoms reported Neurological/Psychological: No symptoms reported -: Yes All other systems reviewed and negative Physical Exam - Vital signs Vitals: Temp Pulse Resp BP Pulse Ox 98.4 F 110 H 22 H 153/90 H 98 12/08/17 18:08 12/08/17 18:08 12/08/17 18:08 12/08/17 18:08 12/08/17 18:08 Interpretation: Normal - General General appearance: Appears well, Alert - HEENT Head: Normocephalic, Atraumatic Eyes: Normal Pupils: PERRL Pharynx: Post nasal drainage - Respiratory Respiratory status: No respiratory distress Chest status: Nontender Breath sounds: Normal Chest palpation: Normal - Cardiovascular Rhythm: Regular Heart sounds: Normal auscultation Murmur: No - Abdominal Inspection: Normal Distension: No distension Bowel sounds: Normal Tenderness: Nontender Organomegaly: No organomegaly - Back Back: Normal, Nontender - Extremities General upper extremity: Normal inspection, Nontender, Normal color, Normal ROM , Normal temperature General lower extremity: Normal inspection, Nontender, Normal color, Normal ROM , Normal temperature, Normal weight bearing. No: Kelly's sign - Neurological Neuro grossly intact: Yes Cognition: Normal Orientation: AAOx4 [place] Coma Scale Eye Opening: Spontaneous [place] Coma Scale Verbal: Oriented [place] Coma Scale Motor: Obeys Commands Renee Coma Scale Total: 15 Speech: Normal Motor strength normal: LUE, RUE, LLE, RLE Sensory: Normal - Psychological Associated symptoms: Normal affect, Normal mood - Skin Skin Temperature: Warm Skin Moisture: Dry Skin Color: Normal Course - Re-evaluation Re-evalutation: 12/09/17 00:57 D-dimer was elevated therefore patient underwent CTA was otherwise negative. Patient's laboratory studies do show slight leukocytosis however Brandee more due to the patient's recent prednisone use. No signs of any infectious etiology. Patient's examination does show some slight postnasal drip more likely the etiology of his cough. Recommend patient stay away from any particulate matter smoke dust also try iohg-rqo-jkcrbho cough medication Tessalon Perles and honey for cough suppression. - Vital Signs Vital signs: Temp Pulse Resp BP Pulse Ox 98.4 F 110 H 23 H 120/84 95 12/08/17 18:08 12/08/17 18:08 12/09/17 00:07 12/09/17 00:07 12/09/17 00:07 - Laboratory Result Diagrams: 12/08/17 19:46 12/08/17 19:46 Laboratory results interpreted by me: 12/08/17 12/08/17 12/08/17 19:46 19:46 19:46 WBC 15.1 H Absolute Neutrophils 10.2 H Absolute Monocytes 2.0 H D-Dimer 0.55 H Total Bilirubin 2.2 H Alkaline Phosphatase 134 H Discharge - Discharge Clinical Impression: Post-nasal drip, Cough Condition: Good Disposition: HOME, SELF-CARE Instructions: Cough Suppressant & Expectorant Medications Additional Instructions: Your laboratory studies and CT scan of the chest x-ray did not show any acute abnormality. I do believe that your symptoms of cough more likely caused by either particulate matter smoke exposure or sinus drainage. We recommend taking antihistamine you may use Zyrtec as prescribed. Also recommend using any hkvr-chb-bupddgq cough medication to help out with your cough he may also try natural honey for cough suppression. I will give you a prescription for Tessalon Perles medication we use here in the hospital to aid patients with cough. Otherwise your workup does not show any signs of blood clots no signs of pneumonia no signs of any other infection. We recommend following up with your primary care physician for further evaluation. Prescriptions: Benzonatate [Tessalon Perle 100 mg Capsule] 100 mg PO Q8HP PRN #40 cap PRN Reason: Cetirizine HCl [Cetirizine 5 mg Tablet] 5 mg PO DAILY #30 tablet Referrals: DIANA STRONG DO [Primary Care Provider] - Follow up in 3-5 days
[2017-12-09 00:35] VITALS: BP 120/84
== END 2017-12-09 00:20 | disposition home or self-care (01) ==
LOC: ER 18:03
DX: R09.82 Postnasal drip (principal); R05 Cough; Z95.1 Presence of aortocoronary bypass graft
CPT/HCPCS: 93005; 99284; 96361; 96375; 96365; 36415; 82550; 85025; 80053; 84484; 85379; 71045; 71275; 93010; A9270; J3490; J7030

== ENCOUNTER 2018-12-04 16:49 | Observation (INO) | payer MEDICARE, OTHER ==
[2018-12-04] MEDS ORDERED: ASPIRIN 81 MG TABLET, CHEWABLE PO ONE (17:48)
[2018-12-04] MEDS ORDERED: NITROGLYCERIN 0.4 MG/TAB 25 TAB/BOTTLE SL ONE (17:49)
--- NOTE | 2018-12-04 17:52 | ER Document Report ---
ED Medical Screen (RME) - General Chief Complaint: Chest Pain Stated Complaint: CHEST PAIN Time Seen by Provider: 12/04/18 17:45 Primary Care Provider: DIANA CLANCY DO [Primary Care Provider] - Follow up as needed Mode of Arrival: Ambulatory Information source: Patient Notes: Patient presents to the emergency department complaints of left-sided chest pain that radiates down his left arm with [place]. Patient's chest wall is tender to palpate. Patient reports history of CABG. Reports he has had this chest pain on and off for the past 2 months. Constant increasing pain today. An EKG was ordered by his primary care provider Dr. Clancy but patient never obtained it. Patient reports he does think he has some nitro at home but he never took any because he could not remember if he had opened it or not. No complaints of nausea vomiting. Patient looks like he is uncomfortable. I have greeted and performed a rapid initial assessment of this patient. A c omprehensive ED assessment and evaluation of the patient, analysis of test results and completion of the medical decision making process will be conducted by additional ED providers. Dictation of this chart was performed using voice recognition software; therefore, there may be some unintended grammatical errors. TRAVEL OUTSIDE OF THE [place] IN LAST 30 DAYS: No - Related Data Allergies/Adverse Reactions: ampicillin [Ampicillin] Allergy (Verified 12/04/18 16:49) Past Medical History - Social History Family history: Reviewed & Not Pertinent - Past Medical History Cardiac Medical History: Reports: Hx Coronary Artery Disease, Hx Hypercholesterolemia, Hx Hypertension, Hx Peripheral Vascular Disease Pulmonary Medical History: Reports: Hx Pneumonia - 2016 Renal/ Medical History: Denies: Hx Peritoneal Dialysis GI Medical History: Reports: Hx Gastroesophageal Reflux Disease Past Surgical History: Reports: Hx Cardiac Surgery, Hx Coronary Artery Bypass Graft, Hx Open Heart Surgery - TRIPLE BYPASS 11/03, Hx Orthopedic Surgery - Descriptive and cervical spine, Hx Vascular Surgery - Stents to bilateral lower extremities, L. CAROTID ENDARTERECTOMY - Immunizations Hx Diphtheria, Pertussis, Tetanus Vaccination: Yes Physical Exam - Vital signs Vitals: Temp Pulse Resp BP Pulse Ox 98.5 F 76 16 143/74 H 97 12/04/18 17:34 12/04/18 17:34 12/04/18 17:34 12/04/18 17:34 12/04/18 17:34 Course - Vital Signs Vital signs: Temp Pulse Resp BP Pulse Ox 98.5 F 76 16 143/74 H 97 12/04/18 17:34 12/04/18 17:34 12/04/18 17:34 12/04/18 17:34 12/04/18 17:34 Doctor's Discharge - Discharge Referrals: DIANA CLANCY DO [Primary Care Provider] - Follow up as needed
[2018-12-04 18:40] LABS: ABSOLUTE BASOPHILS # (AUTO) 0.1 10^3/uL (0.0-0.2); ABSOLUTE EOSINOPHILS # (AUTO) 0.1 10^3/uL (0.0-0.6); ABSOLUTE LYMPHOCYTES (AUTO) 2.5 10^3/uL (0.5-4.7); ABSOLUTE MONOCYTES (AUTO) 0.7 10^3/uL (0.1-1.4); ABSOLUTE NEUT (AUTO) 6.2 10^3/uL (1.7-8.2); BASOPHILS % (AUTO) 0.6 % (0-2); EOSINOPHILS % (AUTO) 1.4 % (0-6); HEMATOCRIT 49.4 % (37.9-51.0); HEMOGLOBIN 17.2 g/dL (13.5-17.0); LYMPHOCYTES % (AUTO) 26.3 % (13-45); MEAN CORPUSCULAR HGB CONC 34.8 g/dL (32.0-36.0); MEAN CORPUSCULAR VOLUME 92 fl (80-97); MONOCYTES % (AUTO) 7.1 % (3-13); PLATELET COUNT 231 10^3/uL (150-450); RED BLOOD COUNT 5.38 10^6/uL (4.35-5.55); RED CELL DISTRIBUTION WIDTH 13.8 % (11.5-14.0); SEGMENTED NEUTROPHILS % (AUTO) 64.6 % (42-78); TOTAL CELLS COUNTED % (AUTO) 100 %; WHITE BLOOD COUNT 9.6 10^3/uL (4.0-10.5)
[2018-12-04 18:59] LABS: ALANINE AMINOTRANSFERASE 36 U/L (21-72); ALBUMIN 4.4 g/dL (3.5-5.0); ALKALINE PHOSPHATASE 130 U/L (38-126); ANION GAP 7 (5-19); ASPARTATE AMINO TRANSFERASE 26 U/L (17-59); BILIRUBIN,DIRECT 0.3 mg/dL (0.0-0.4); BILIRUBIN,TOTAL 0.9 mg/dL (0.2-1.3); BLOOD UREA NITROGEN 8 mg/dL (7-20); CALCIUM 9.7 mg/dL (8.4-10.2); CARBON DIOXIDE 28 mmol/L (22-30); CHLORIDE 103 mmol/L (98-107); CREATINE KINASE 156 U/L (55-170); GLUCOSE 90 mg/dL (75-110); LIPASE 84.2 U/L (23-300); POTASSIUM 4.6 mmol/L (3.6-5.0); SODIUM 138.2 mmol/L (137-145)
--- NOTE | 2018-12-04 19:21 | RADIOLOGY REPORT (SQ) ---
EXAM DESCRIPTION: CHEST 2 VIEWS COMPLETED DATE/TIME: 12/04/2018 7:03 pm REASON FOR STUDY: cp COMPARISON: 12/08/2017 TECHNIQUE: Frontal and lateral radiographic views of the chest acquired. NUMBER OF VIEWS: Two view. LIMITATIONS: None. FINDINGS: LUNGS AND PLEURA: No pneumothorax. No consolidation or pleural effusion. MEDIASTINUM AND HILAR STRUCTURES: Stable. HEART AND VASCULAR STRUCTURES: Stable. BONES: No acute findings. HARDWARE: CABG. OTHER: No other significant finding. IMPRESSION: NO ACUTE FINDINGS. TECHNICAL DOCUMENTATION: JOB ID: [id number] [employer]- All Rights Reserved Reading location - IP/workstation name: [email or web address]
--- NOTE | 2018-12-04 20:46 | ER Document Report ---
ED Cardiac - General Chief Complaint: Chest Pain Stated Complaint: CHEST PAIN Time Seen by Provider: 12/04/18 17:45 Mode of Arrival: Ambulatory TRAVEL OUTSIDE OF THE [place] IN LAST 30 DAYS: No - HPI Patient complains to provider of: Chest pain Was the onset of pain: Sudden Is the pain a: New problem Chest pain location: Substernal Quality of pain: Sharp Chest pain radiation location: Left arm Severity now: Moderate Severity at worst: Severe Pain level currently: 3 Cardiac risk factors: Smoker, Dyslipidemia Positive cardiac history: Yes Associated symptoms: Shortness of breath, Other - Left arm numbness and heaviness. Relieved by: NTG, Other - Aspirin. Similar symptoms previously: Yes Recently seen / treated by doctor: No - Related Data Allergies/Adverse Reactions: ampicillin [Ampicillin] Allergy (Verified 12/04/18 16:49) Past Medical History - General Information source: Patient - Social History Smoking Status: Current Every Day Smoker Chew tobacco use (# tins/day): No Frequency of alcohol use: None Drug Abuse: None Family History: Reviewed & Not Pertinent Patient has suicidal ideation: No Patient has homicidal ideation: No - Past Medical History Cardiac Medical History: Reports: Hx Coronary Artery Disease, Hx Hypercholesterolemia, Hx Hypertension, Hx Peripheral Vascular Disease Pulmonary Medical History: Reports: Hx Pneumonia - 2016 Renal/ Medical History: Denies: Hx Peritoneal Dialysis GI Medical History: Reports: Hx Gastroesophageal Reflux Disease Past Surgical History: Reports: Hx Cardiac Catheterization, Hx Cardiac Surgery, Hx Coronary Artery Bypass Graft, Hx Open Heart Surgery - TRIPLE BYPASS 11/03, Hx Orthopedic Surgery - Descriptive and cervical spine, Hx Vascular Surgery - Stents to bilateral lower extremities, L. CAROTID ENDARTERECTOMY - Immunizations Hx Diphtheria, Pertussis, Tetanus Vaccination: Yes Review of Systems - Review of Systems Constitutional: No symptoms reported EENT: No symptoms reported Cardiovascular: Chest pain Respiratory: Short of breath Gastrointestinal: No symptoms reported Genitourinary: No symptoms reported Male Genitourinary: No symptoms reported Musculoskeletal: No symptoms reported Skin: No symptoms reported Hematologic/Lymphatic: No symptoms reported Neurological/Psychological: Numbness -: Yes All other systems reviewed and negative Physical Exam - Vital signs Vitals: Temp Pulse Resp BP Pulse Ox 98.5 F 76 16 143/74 H 97 12/04/18 17:34 12/04/18 17:34 12/04/18 17:34 12/04/18 17:34 12/04/18 17:34 Interpretation: Normal - General General appearance: Appears well, Alert - HEENT Head: Normocephalic, Atraumatic Eyes: Normal Pupils: PERRL - Respiratory Respiratory status: No respiratory distress Chest status: Nontender Breath sounds: Normal Chest palpation: Normal - Cardiovascular Rhythm: Regular Heart sounds: Normal auscultation Murmur: No - Abdominal Inspection: Normal Distension: No distension Bowel sounds: Normal Tenderness: Nontender Organomegaly: No organomegaly - Back Back: Normal, Nontender - Extremities General upper extremity: Normal inspection, Nontender, Normal color, Normal ROM, Normal temperature General lower extremity: Normal inspection, Nontender, Normal color, Normal ROM, Normal temperature, Normal weight bearing. No: Kelly's sign - Neurological Neuro grossly intact: Yes Cognition: Normal Orientation: AAOx4 [place] Coma Scale Eye Opening: Spontaneous [place] Coma Scale Verbal: Oriented [place] Coma Scale Motor: Obeys Commands [place] Coma Scale Total: 15 Speech: Normal Motor strength normal: LUE, RUE, LLE, RLE Sensory: Normal - Psychological Associated symptoms: Normal affect, Normal mood - Skin Skin Temperature: Warm Skin Moisture: Dry Skin Color: Normal Course - Vital Signs Vital signs: Temp Pulse Resp BP Pulse Ox 97.3 F 49 L 20 117/63 97 12/05/18 02:23 12/05/18 02:23 12/05/18 02:23 12/05/18 02:23 12/05/18 02:12 - Laboratory Result Diagrams: 12/04/18 18:22 12/04/18 18:22 Laboratory results interpreted by me: 12/04/18 12/04/18 18:22 18:22 Hgb 17.2 H Alkaline Phosphatase 130 H - Diagnostic Test Radiology reviewed: Reports reviewed Radiology results interpreted by ct: 12/04/18 20:44 Chest x-ray is negative. - EKG Interpretation by [place] EKG shows normal: Sinus rhythm Rate: Normal Rhythm: NSR When compared to previous EKG there are: No significant change Additional EKG results interpreted by ct: 12/04/18 20:45 No STEMI. - Transfer of Care Notes: 12/04/18 21:00 Patient will be admitted by the hospitalist on-call Dr. Alex Beach for further evaluation and management. Discharge - Discharge Clinical Impression: History of coronary artery disease Chest pain Qualifiers: Chest pain type: unspecified Qualified Code(s): R07.9 - Chest pain, unspecified Condition: Stable Disposition: ADMITTED INPATIENT Admitting Provider: Yong (Hospitalist) Unit Admitted: Telemetry
[2018-12-04] MEDS ORDERED: ACETAMINOPHEN 325 MG TABLET PO ONE (20:49)
[2018-12-04] MEDS ORDERED: MAG HYDROX/AL HYDROX/SIMETH SUSP 30 ML UDCUP PO PRN (21:00)
[2018-12-04] MEDS ORDERED: NITROGLYCERIN 0.4 MG/TAB 25 TAB/BOTTLE SL PRN (21:00)
[2018-12-04 22:49] LABS: APPEARANCE,URINE CLEAR; BILIRUBIN,URINE NEGATIVE (NEGATIVE); COLOR,URINE YELLOW; GLUCOSE, URINE NEGATIVE (NEGATIVE); KETONES,URINE NEGATIVE (NEGATIVE); LEUKOCYTE ESTERASE,URINE NEGATIVE (NEGATIVE); NITRITE,URINE NEGATIVE (NEGATIVE); PROTEIN,URINE NEGATIVE (NEGATIVE); URINE SPECIFIC GRAVITY 1.008; UROBILINOGEN,URINE NEGATIVE mg/dL (<2.0)
[2018-12-04] MEDS ORDERED: NICOTINE 7 MG/24 HR PATCH.TD24 TD PRN (22:51)
[2018-12-04] MEDS ORDERED: KETOROLAC TROMETHAMINE INJ/PF 30 MG/1 ML SDV IV ONE (23:22)
[2018-12-04] MEDS ORDERED: OXYCODONE HCL IR 5 MG TABLET PO ONE (23:23)
[2018-12-04] MEDS ORDERED: METOPROLOL TARTRATE 25 MG TABLET PO ONE (23:23)
[2018-12-04] MEDS ORDERED: PRAMIPEXOLE DI-HCL 0.5 MG TABLET PO ONE (23:25)
[2018-12-04] MEDS: ATORVASTATIN CALCIUM 40 MG TABLET PO SCH (23:29)
[2018-12-04] MEDS: CLOPIDOGREL BISULFATE 75 MG TABLET PO SCH (23:29)
[2018-12-04] MEDS: ZOLPIDEM TARTRATE 5 MG TABLET PO PRN (23:29)
[2018-12-04] MEDS ORDERED: TRAZODONE HCL 50 MG TABLET ONE (23:38)
[2018-12-04] MEDS ORDERED: PRAMIPEXOLE DI-HCL 0.5 MG TABLET ONE (23:38)
[2018-12-04] MEDS: TRAZODONE HCL 50 MG TABLET PO SCH (23:43)
--- NOTE | 2018-12-04 23:57 | EKG REPORT ---
SEVERITY:- ABNORMAL ECG - SINUS RHYTHM BORDERLINE RIGHT AXIS DEVIATION ABNRM R PROG, CONSIDER ASMI OR LEAD PLACEMENT : Confirmed by: Bing Ghotra 04-Dec-2018 23:56:55
--- NOTE | 2018-12-05 04:16 | PDOC H&P ---
History of Present Illness Admission Date/PCP: 12/04/18 20:59 DIANA STRONG DO Patient complains of: Chest pain History of Present Illness: LAMONT DECKER is a 63 year old male with a past medical history of coronary artery bypass graft in 2013, hypertension, chronic pain, anxiety and tobacco dependence. Patient presents 2 hours after the onset chest wall pain occurring after an argument with his . He denies palpitations, diaphoresis, nausea vomiting or shortness of breath. He is unable to describe alleviating factors and has reproducible chest wall pain requesting narcotics. Patient is upset he is unable to fill narcotic prescriptions from primary care provider. Patient states he has been short tempered for a couple of months but cannot not identify the cause. He denies recent stress test and is referred to the hospitalist for admission. He has an angry affect, denies depression, homicidal or suicidal ideation. Past Medical History Cardiac Medical History: Reports: Coronary Artery Disease, Hyperlipidema, Hypertension, Peripheral Vascular Disease Pulmonary Medical History: Reports: Pneumonia - 2016 GI Medical History: Reports: Gastroesophageal Reflux Disease Past Surgical History Past Surgical History: Reports: Cardiac Catheterization, Coronary Artery Bypass Graft, Orthopedic Surgery - Descriptive and cervical spine, Vascular Surgery - Stents to bilateral lower extremities, L. CAROTID ENDARTERECTOMY Social History Information Source: Patient, [facility] Records Lives with: Spouse/Significant other Smoking Status: Current Every Day Smoker Number of Years Smokin Frequency of Alcohol Use: None Hx Recreational Drug Use: No Drugs: None Hx Prescription Drug Abuse: No - Advance Directive Resuscitation Status: Full Code Family History Family History: Hypertension Parental Family History Reviewed: Yes Children Family History Reviewed: Yes Sibling(s) Family History Reviewed.: Yes Medication/Allergy Home Medications: Aspirin [Aspirin 81 mg Chewable Tablet] 1 tab PO DAILY 12/17/13 Metoprolol Succinate [Toprol Xl] 1.5 tab PO BID 12/17/13 Atorvastatin Calcium [Lipitor] 40 mg PO DAILY 10/21/14 Clopidogrel Bisulfate [Clopidogrel] 75 mg PO DAILY 11/06/15 Pramipexole Di-HCl [Mirapex] 0.5 mg PO DAILY 11/06/15 Trazodone HCl 100 mg PO QHS 11/06/15 Albuterol Sulfate [Ventolin Hfa] 1 - 2 puff IH Q4 PRN #1 [id number] 05/17/17 Albuterol Sulfate [Proair HFA Inhalation Aerosol 8.5 gm MDI] 2 puff IH Q4H PRN #1 mdi 11/30/17 Prednisone [Deltasone 20 mg Tablet] 3 tab PO DAILY 4 Days tablet 11/30/17 Allergies/Adverse Reactions: ampicillin [Ampicillin] Allergy (Verified 12/04/18 16:49) Review of Systems Constitutional: ABSENT: chills, fever(s), headache(s), weight gain, weight loss Eyes: ABSENT: visual disturbances Ears: ABSENT: hearing changes Cardiovascular: ABSENT: chest pain, dyspnea on exertion, edema, orthropnea, palpitations Respiratory: ABSENT: cough, hemoptysis Gastrointestinal: ABSENT: abdominal pain, constipation, diarrhea, hematemesis, hematochezia, nausea, vomiting Genitourinary: ABSENT: dysuria, hematuria Musculoskeletal: ABSENT: joint swelling Integumentary: ABSENT: rash, wounds Neurological: ABSENT: abnormal gait, abnormal speech, confusion, dizziness, focal weakness, syncope Psychiatric: PRESENT: as per HPI, anxiety. ABSENT: depression, homidical ideation, suicidal ideation Endocrine: ABSENT: cold intolerance, heat intolerance, polydipsia, polyuria Hematologic/Lymphatic: ABSENT: easy bleeding, easy bruising Physical Exam Vital Signs: Temp Pulse Resp BP Pulse Ox 97.3 F 49 L 20 117/63 97 12/05/18 02:23 12/05/18 02:23 12/05/18 02:23 12/05/18 02:23 12/05/18 02:12 Intake & Output 12/03/18 12/04/18 12/05/18 11:59 11:59 11:59 Weight 79.7 kg General appearance: PRESENT: no acute distress, cooperative, well-developed, well-nourished Head exam: PRESENT: atraumatic, normocephalic Eye exam: PRESENT: conjunctiva pink, EOMI, PERRLA. ABSENT: scleral icterus Ear exam: PRESENT: normal external ear exam Mouth exam: PRESENT: moist, tongue midline Neck exam: ABSENT: carotid bruit, JVD, lymphadenopathy, thyromegaly Respiratory exam: PRESENT: clear to auscultation adolph, crackles, prolonged expiratory phas. ABSENT: rales, rhonchi, wheezes Cardiovascular exam: PRESENT: RRR. ABSENT: diastolic murmur, rubs, systolic murmur Pulses: PRESENT: normal dorsalis pedis pul Vascular exam: PRESENT: normal capillary refill GI/Abdominal exam: PRESENT: normal bowel sounds, soft. ABSENT: distended, guarding, mass, organolmegaly, rebound, tenderness Torso Front/Back Image: 1 - Reproducible chest wall pain Rectal exam: PRESENT: deferred Extremities exam: PRESENT: full ROM. ABSENT: calf tenderness, clubbing, pedal edema Neurological exam: PRESENT: alert, awake, oriented to person, oriented to place, oriented to time, oriented to situation, CN II-XII grossly intact. ABSENT: motor sensory deficit Psychiatric exam: PRESENT: appropriate affect, normal mood. ABSENT: homicidal ideation, suicidal ideation Skin exam: PRESENT: dry, intact, warm. ABSENT: cyanosis, rash Results Laboratory Results: 12/04/18 18:22 12/04/18 18:22 12/04/18 12/04/18 12/04/18 18:22 18:22 18:22 WBC 9.6 RBC 5.38 Hgb 17.2 H Hct 49.4 MCV 92 MCH 32.0 MCHC 34.8 RDW 13.8 Plt Count 231 Seg Neutrophils % 64.6 Lymphocytes % 26.3 Monocytes % 7.1 Eosinophils % 1.4 Basophils % 0.6 Absolute Neutrophils 6.2 Absolute Lymphocytes 2.5 Absolute Monocytes 0.7 Absolute Eosinophils 0.1 Absolute Basophils 0.1 Sodium 138.2 Potassium 4.6 Chloride 103 Carbon Dioxide 28 Anion Gap 7 BUN 8 Creatinine 0.97 Est GFR ( Amer) > 60 Est GFR (Non-Af Amer) > 60 Glucose 90 Calcium 9.7 Total Bilirubin 0.9 AST 26 ALT 36 Alkaline Phosphatase 130 H Total Protein 7.0 Albumin 4.4 Lipase 84.2 TSH 2.10 Urine Color Urine Appearance Urine pH Ur Specific [place] Urine Protein Urine Glucose (UA) Urine Ketones Urine Blood Urine Nitrite Ur Leukocyte Esterase Urine WBC (Auto) Urine RBC (Auto) 12/04/18 22:17 WBC RBC Hgb Hct MCV MCH MCHC RDW Plt Count Seg Neutrophils % Lymphocytes % Monocytes % Eosinophils % Basophils % Absolute Neutrophils Absolute Lymphocytes Absolute Monocytes Absolute Eosinophils Absolute Basophils Sodium Potassium Chloride Carbon Dioxide Anion Gap BUN Creatinine Est GFR ( Amer) Est GFR (Non-Af Amer) Glucose Calcium Total Bilirubin AST ALT Alkaline Phosphatase Total Protein Albumin Lipase TSH Urine Color YELLOW Urine Appearance CLEAR Urine pH 7.0 Ur Specific [place] 1.008 Urine Protein NEGATIVE Urine Glucose (UA) NEGATIVE Urine Ketones NEGATIVE Urine Blood NEGATIVE Urine Nitrite NEGATIVE Ur Leukocyte Esterase NEGATIVE Urine WBC (Auto) 0 Urine RBC (Auto) 2 12/04/18 12/04/18 12/04/18 18:22 18:22 21:40 Creatine Kinase 156 Troponin I < 0.012 < 0.012 Impressions: Chest X-Ray 12/04/18 17:49 IMPRESSION: NO ACUTE FINDINGS. Assessment and Plan - Diagnosis (1) Atypical chest pain Is this a current diagnosis for this admission?: Yes Plan: Atypical chest pain though the patient's pain is atypical there are multiple risk factors for coronary artery disease and subsequently will observe and evaluation of acute coronary syndrome versus coronary artery disease with anginal equivalents. Cardiac monitoring blood pressure Q6 hours ,TSH, lipid pro file, serial cardiac enzymes and cardiac stress test (2) Tobacco abuse Is this a current diagnosis for this admission?: Yes Plan: Tobacco Dependence patient received tobacco cessation counseling and offered nicotine replacement options (3) Anxiety Is this a current diagnosis for this admission?: Yes Plan: Trazodone (4) History of coronary artery disease Is this a current diagnosis for this admission?: Yes Plan: Cardiolite stress for risk stratification - Time Time Spent with patient: 25-34 minutes
[2018-12-05 04:49] LABS: CHOLESTEROL 107.69 mg/dL (0-200); TRIGLYCERIDES 123 mg/dL (<150)
[2018-12-05 05:00] LABS: DIRECT LDL 65 mg/dL (<100)
[2018-12-05] MEDS ORDERED: OXYCODONE HCL IR 5 MG TABLET ONE (09:14)
[2018-12-05] MEDS: ASPIRIN 81 MG TABLET, ENT COATED PO SCH (09:15)
[2018-12-05] MEDS: CLOPIDOGREL BISULFATE 75 MG TABLET PO SCH (09:15)
--- NOTE | 2018-12-05 13:23 | PDOC PROGRESS REPORT ---
Subjective Progress Note for:: 12/05/18 Subjective:: This is a 63 yr old male with a PMH of coronary artery bypass graft in 2013, hypertension, chronic pain, anxiety and tobacco dependence who presented with chest pain after an argument with his . He was admitted to rule out ACS. Patient was scheduled to get a stress test this morning. Troponins have been negative. However he developed new onset chest pressure this morning. He says that his chest pain yesterday was sharp in nature but it is more a pressure-like this morning. He does have chest wall tenderness on palpation. He denies shortness of breath. Stress testing has been deferred. Will continue to cycle troponins today and reschedule stress testing tomorrow morning. Reason For Visit: CHEST PAIN CAD Physical Exam Vital Signs: Temp Pulse Resp BP Pulse Ox 97.8 F 60 14 94/49 L 96 12/05/18 07:43 12/05/18 07:43 12/05/18 07:43 12/05/18 07:43 12/05/18 07:43 Intake & Output 12/04/18 12/05/18 12/06/18 06:59 06:59 06:59 Intake Total 0 120 Output Total 0 Balance 0 120 Weight 181 lb 3.52 oz General appearance: PRESENT: no acute distress, well-developed, well-nourished Head exam: PRESENT: atraumatic, normocephalic Eye exam: PRESENT: conjunctiva pink, EOMI, PERRLA. ABSENT: scleral icterus Ear exam: PRESENT: normal external ear exam Mouth exam: PRESENT: moist, tongue midline Neck exam: ABSENT: carotid bruit, JVD, lymphadenopathy, thyromegaly Respiratory exam: PRESENT: clear to auscultation adolph. ABSENT: rales, rhonchi, wheezes Cardiovascular exam: PRESENT: RRR, other - Positive chest wall tenderness on palpation. ABSENT: diastolic murmur, rubs, systolic murmur Pulses: PRESENT: normal dorsalis pedis pul GI/Abdominal exam: PRESENT: normal bowel sounds, soft. ABSENT: distended, guarding, mass, organolmegaly, rebound, tenderness Rectal exam: PRESENT: deferred Extremities exam: PRESENT: full ROM. ABSENT: calf tenderness, clubbing, pedal edema Neurological exam: PRESENT: alert, awake, oriented to person, oriented to place, oriented to time, oriented to situation, CN II-XII grossly intact. ABSENT: motor sensory deficit Results Laboratory Results: 12/04/18 18:22 12/04/18 18:22 12/04/18 12/04/18 12/04/18 18:22 18:22 18:22 WBC 9.6 RBC 5.38 Hgb 17.2 H Hct 49.4 MCV 92 MCH 32.0 MCHC 34.8 RDW 13.8 Plt Count 231 Seg Neutrophils % 64.6 Lymphocytes % 26.3 Monocytes % 7.1 Eosinophils % 1.4 Basophils % 0.6 Absolute Neutrophils 6.2 Absolute Lymphocytes 2.5 Absolute Monocytes 0.7 Absolute Eosinophils 0.1 Absolute Basophils 0.1 Sodium 138.2 Potassium 4.6 Chloride 103 Carbon Dioxide 28 Anion Gap 7 BUN 8 Creatinine 0.97 Est GFR ( Amer) > 60 Est GFR (Non-Af Amer) > 60 Glucose 90 Calcium 9.7 Total Bilirubin 0.9 AST 26 ALT 36 Alkaline Phosphatase 130 H Total Protein 7.0 Albumin 4.4 Triglycerides Cholesterol LDL Cholesterol Direct VLDL Cholesterol HDL Cholesterol Lipase 84.2 TSH 2.10 Urine Color Urine Appearance Urine pH Ur Specific [place] Urine Protein Urine Glucose (UA) Urine Ketones Urine Blood Urine Nitrite Ur Leukocyte Esterase Urine WBC (Auto) Urine RBC (Auto) 12/04/18 12/05/18 22:17 04:01 WBC RBC Hgb Hct MCV MCH MCHC RDW Plt Count Seg Neutrophils % Lymphocytes % Monocytes % Eosinophils % Basophils % Absolute Neutrophils Absolute Lymphocytes Absolute Monocytes Absolute Eosinophils Absolute Basophils Sodium Potassium Chloride Carbon Dioxide Anion Gap BUN Creatinine Est GFR ( Amer) Est GFR (Non-Af Amer) Glucose Calcium Total Bilirubin AST ALT Alkaline Phosphatase Total Protein Albumin Triglycerides 123 Cholesterol 107.69 LDL Cholesterol Direct 65 VLDL Cholesterol 25.0 HDL Cholesterol 25 L Lipase TSH Urine Color YELLOW Urine Appearance CLEAR Urine pH 7.0 Ur Specific [place] 1.008 Urine Protein NEGATIVE Urine Glucose (UA) NEGATIVE Urine Ketones NEGATIVE Urine Blood NEGATIVE Urine Nitrite NEGATIVE Ur Leukocyte Esterase NEGATIVE Urine WBC (Auto) 0 Urine RBC (Auto) 2 12/04/18 12/04/18 12/04/18 18:22 18:22 21:40 Creatine Kinase 156 Troponin I < 0.012 < 0.012 12/05/18 12/05/18 04:01 09:07 Creatine Kinase Troponin I < 0.012 < 0.012 Impressions: Chest X-Ray 12/04/18 17:49 IMPRESSION: NO ACUTE FINDINGS. Assessment and Plan - Diagnosis (1) Chest pain Qualifiers: Chest pain type: unspecified Qualified Code(s): R07.9 - Chest pain, unspecified Is this a current diagnosis for this admission?: Yes Plan: Patient was scheduled to get a stress test this morning. Troponins have been negative. However he developed new onset chest pressure this morning. He says that his chest pain yesterday was sharp in nature but it is more a pressure-like this morning. He does have chest wall tenderness on palpation. Stress testing has been deferred. Will continue to cycle troponins today and reschedule stress testing tomorrow morning. (2) History of coronary artery disease Is this a current diagnosis for this admission?: Yes Plan: Continue aspirin and statin. - Time Time Spent with patient: 25-34 minutes
[2018-12-05] MEDS ORDERED: TIZANIDINE HCL 4 MG TABLET PO PRN (17:52)
[2018-12-05] MEDS: OXYCODONE HCL IR 5 MG TABLET PO PRN (18:15)
[2018-12-05] MEDS: ZOLPIDEM TARTRATE 5 MG TABLET PO PRN (21:07)
[2018-12-05] MEDS: ATORVASTATIN CALCIUM 40 MG TABLET PO SCH (21:07)
[2018-12-05] MEDS: TRAZODONE HCL 50 MG TABLET PO SCH (21:07)
[2018-12-06] MEDS: CLOPIDOGREL BISULFATE 75 MG TABLET PO SCH (10:13)
[2018-12-06] MEDS: ASPIRIN 81 MG TABLET, ENT COATED PO SCH (10:13)
[2018-12-06] MEDS: OXYCODONE HCL IR 5 MG TABLET PO PRN (10:16)
[2018-12-06] MEDS ORDERED: REGADENOSON INJ 0.4 MG/5 ML DISP.SYRIN IV ONE (10:49)
--- NOTE | 2018-12-06 13:49 | DRAGON STRESS TEST REPORT ---
Intravenous Lexiscan Cardiolite stress test using single photon emmision computerized tomography. Date of procedure: 12/06/2018. Ordering Provider: Dr. Jose Beach. Patient's status: In Patient. Indication: Chest pain the patient with a history of coronary artery disease, and history of coronary artery bypass graft surgery in 2013 [MCGHEE to the LAD, saphenous vein graft to the obtuse marginal 1 branch, and saphenous vein graft to the ramus intermedius]. Coronary risk factors: Age, hypertension, dyslipidemia, and tobacco abuse disorder. Resting EKG: Sinus Rhythm. Within Normal Limits. Stress EKG: No changes of ischemia. The patient had no chest pain or discomfort, and there were no arrhythmias seen. Reason for termination: Protocol. Conclusions: Normal EKG and hemodynamic response to IV Lexiscan. Nuclear data: At rest the patient was given 13.04 millicuries of technetium 99m sestamibi injected intravenously. As per protocol rest non gated SPECT images were obtained. Subsequently the patient was given intravenous Lexiscan at a dose of 0.4 mg in 5 mL intravenously, followed by flush with normal saline. Subsequently the stress dose of 40.2 millicuries of technetium 99m sestamibi was injected intravenously. As per protocol stress gated images were obtained. Nuclear interpretation: Review of images showed that all segments of the myocardium had normal perfusion at rest, and normal perfusion post stress with IV Lexiscan. All segments of the myocardium had normal motion, contraction, and thickening by gated study. T. I D. ratio was read as abnormal, by the computer, at 1.25. Visually this is not reliable. Visually that TIT ratio is within normal limits. There is no transient ischemic dilatation of the left ventricle. Computer read rest, and stress left ventricular ejection fraction were 54 %, and 46 %, respectively. Visually both the stress and rest ejection fractions were normal, and greater than 55%. Conclusion: 1. There is no scintigraphic evidence of Lexiscan induced myocardial ischemia. 2. There is no scintigraphic evidence of myocardial infarction/scar. Recommendations: 1. Aggressive treatment of coronary artery disease, with beta-blockers, statins, nitrates and aspirin if no contraindication. 2. Aggressive risk factor modification, and treating the underlying co- morbidities. Strongly recommend tobacco cessation. 3. Close cardiology follow-up as an outpatient. The patient customer service engineer is Dr. Davila at [facility]
--- NOTE | 2018-12-06 14:45 | PDOC DISCHARGE SUMMARY ---
General - Admit/Disc Date/PCP Admission Date/Primary Care Provider: 12/04/18 20:59 DIANA CASTILLOUMATE, Discharge Date: 12/06/18 - Additional Information Resuscitation Status: Full Code Home Medications: Metoprolol Succinate [Toprol Xl] 37.5 mg PO Q12 12/17/13 Atorvastatin Calcium [Lipitor] 40 mg PO QHS 10/21/14 Pramipexole Di-HCl [Mirapex] 0.5 mg PO QHS 11/06/15 Aspirin [Ecotrin 81 mg EC Tablet] 81 mg PO DAILY 12/05/18 Omeprazole 20 mg PO BID 12/05/18 Oxycodone HCl [Oxy-Ir 5 mg Tablet] 5 mg PO Q8HP PRN 12/05/18 Sildenafil Citrate [Viagra] 50 mg PO ASDIR PRN 12/05/18 Tizanidine HCl [Zanaflex 4 Mg Tablet] 4 mg PO Q8HP PRN MDD 3 TABS 12/05/18 History of Present Illness History of Present Illness: LAMONT DECKER is a 63 year old male with a past medical history of coronary artery bypass graft in 2013, hypertension, chronic pain, anxiety and tobacco dependence. Patient presents 2 hours after the onset chest wall pain occurring after an argument with his . He denies palpitations, diaphoresis, nausea vomiting or shortness of breath. He is unable to describe alleviating factors and has reproducible chest wall pain requesting narcotics. Patient is upset he is unable to fill narcotic prescriptions from primary care provider. Patient states he has been short tempered for a couple of months but cannot not identify the cause. He denies recent stress test and is referred to the hospitalist for admission. He has an angry affect, denies depression, homicidal or suicidal ideation. Hospital Course Hospital Course: This is 63 years old male patient admitted for chest pain. Since he has multiple risk factor for acute coronary syndrome patient admitted for observation. His cardiac enzymes are cycled and are negative. Patient remained overnight chest pain-free and this morning he is subjected to cardiac stress test and is reportedly negative. His vital signs and blood works are unremarkable. Patient is stable enough to be discharged today. I will continue his home medication and he needs follow-up with his primary care physician. Physical Exam Vital Signs: Temp Pulse Resp BP Pulse Ox 97.8 F 81 16 120/63 97 12/06/18 11:17 12/06/18 11:17 12/06/18 11:17 12/06/18 11:17 12/06/18 11:17 Intake & Output 12/05/18 12/06/18 12/07/18 06:59 06:59 06:59 Intake Total 0 1380 240 Output Total 0 300 Balance 0 1080 240 Weight 82.2 kg 88.1 kg Results Laboratory Results: 12/04/18 18:22 12/04/18 18:22 12/04/18 12/04/18 12/04/18 18:22 18:22 21:40 Creatine Kinase 156 Troponin I < 0.012 < 0.012 12/05/18 12/05/18 12/05/18 04:01 09:07 14:50 Creatine Kinase Troponin I < 0.012 < 0.012 < 0.012 Impressions: Chest X-Ray 12/04/18 17:49 IMPRESSION: NO ACUTE FINDINGS. Qualifiers - * PATIENT BEING DISCHARGED WITH ANY OF THE FOLLOWING DIAGNOSIS: No Acute Heart Failure - Is this a Heart Failure Patient?: No LVEF < 40%?: No- if no continue to question #3 3. Anticoagulant therapy for permanect/persistent/paraoxysmal Afib or Aflutter: N/A
[2018-12-06 15:00] VITALS: BP 117/63
== END 2018-12-06 15:00 | disposition home or self-care (01) ==
LOC: ER 16:49 → INTOOBSV 20:59 → EH 20:59 → 3W 12-05 02:03 → 4W 12-06 03:51
PROVIDERS: ADMIT Internal Medicine; ATTEND Internal Medicine
DX: R07.89 Other chest pain (principal); I25.10 Atherosclerotic heart disease of native coronary artery without angina pectoris; I10 Essential (primary) hypertension; F41.9 Anxiety disorder, unspecified; G89.4 Chronic pain syndrome; M54.9 Dorsalgia, unspecified; E78.5 Hyperlipidemia, unspecified; F17.200 Nicotine dependence, unspecified, uncomplicated; R06.02 Shortness of breath; R20.0 Anesthesia of skin; R51 Headache; Z95.1 Presence of aortocoronary bypass graft; Z95.820 Peripheral vascular angioplasty status with implants and grafts; Z79.899 Other long term (current) drug therapy; Z87.01 Personal history of pneumonia (recurrent); Z82.49 Family history of ischemic heart disease and other diseases of the circulatory system; Z98.890 Other specified postprocedural states; Z79.82 Long term (current) use of aspirin; Z79.02 Long term (current) use of antithrombotics/antiplatelets
CPT/HCPCS: 93005; 99285; 36415 ×2; 82550; 83690; 84443; 85025; 80053; 81001; 84484 ×2; 80061; 93017; 71046; 78452; 93010; G0378 ×4; A9500; J2785; A9270 ×16; J1885; J3490 ×2; Q9969

== ENCOUNTER 2019-07-08 10:03 | Emergency (ER) | payer MEDICARE, OTHER ==
[2019-07-08] MEDS ORDERED: IPRATROPIUM/ALBUTEROL 0.5-2.5 MG/3 ML AMPUL NEB ONE (10:31)
--- NOTE | 2019-07-08 10:33 | ER Document Report ---
HPI - HPI Time Seen by Provider: 07/08/19 10:17 Pain Level: 3 Notes: 64-year-old male patient presenting to the emergency department chief complaint of cough, congestion, body aches and low-grade fever at home. Patient reports symptoms started 2 days ago. He does report that he is a current smoker. Denies any nausea, vomiting, diarrhea. Past Medical History - General Information source: Patient - Social History Smoking Status: Current Every Day Smoker Chew tobacco use (# tins/day): No Frequency of alcohol use: None Drug Abuse: None Family History: Hypertension Patient has suicidal ideation: No Patient has homicidal ideation: No - Past Medical History Cardiac Medical History: Reports: Hx Coronary Artery Disease, Hx Hypercholesterolemia, Hx Hypertension, Hx Peripheral Vascular Disease Pulmonary Medical History: Reports: Hx Pneumonia - 2016 Renal/ Medical History: Denies: Hx Peritoneal Dialysis GI Medical History: Reports: Hx Gastroesophageal Reflux Disease Past Surgical History: Reports: Hx Cardiac Catheterization, Hx Cardiac Surgery, Hx Coronary Artery Bypass Graft, Hx Open Heart Surgery - TRIPLE BYPASS 11/03, Hx Orthopedic Surgery - Descriptive and cervical spine, Hx Vascular Surgery - Stents to bilateral lower extremities, L. CAROTID ENDARTERECTOMY - Immunizations Hx Diphtheria, Pertussis, Tetanus Vaccination: Yes Vertical Provider Document - CONSTITUTIONAL Notes: PHYSICAL EXAMINATION: GENERAL: Well-appearing, well-nourished and in no acute distress. HEAD: Atraumatic, normocephalic. EYES: Pupils equal round and reactive to light, extraocular movements intact, sclera anicteric, conjunctiva are normal. ENT: Nares patent, oropharynx clear without exudates. Moist mucous membranes. NECK: Normal range of motion, supple without lymphadenopathy LUNGS: Faint expiratory wheezes noted in the left lower lobe. HEART: Regular rate and rhythm without murmurs ABDOMEN: Soft, nontender, nondistended abdomen. No guarding, no rebound. No masses appreciated. Musculoskeletal: Normal range of motion, no pitting or edema. No cyanosis. NEUROLOGICAL: Cranial nerves grossly intact. Normal speech, normal gait. Normal sensory, motor exams PSYCH: Normal mood, normal affect. SKIN: Warm, Dry, normal turgor, no rashes or lesions noted. - INFECTION CONTROL TRAVEL OUTSIDE OF THE [place] IN LAST 30 DAYS: No Course - Re-evaluation Re-evalutation: Laboratory 07/08/19 10:32 Influenza A (Rapid) NEGATIVE Influenza B (Rapid) NEGATIVE Chest X-Ray 07/08/19 10:30 IMPRESSION: NO ACUTE FINDINGS. - Vital Signs Vital signs: Temp Pulse Resp BP Pulse Ox 98.1 F 63 20 132/72 H 96 07/08/19 10:13 07/08/19 10:13 07/08/19 10:13 07/08/19 10:13 07/08/19 10:13 Discharge - Discharge Clinical Impression: Cough, COPD exacerbation Fever Qualifiers: Fever type: unspecified Qualified Code(s): R50.9 - Fever, unspecified Condition: Stable Disposition: HOME, SELF-CARE Additional Instructions: Your flu test was negative. Your chest x-ray did not show any pneumonia. Your symptoms improved with treatment here in the emergency department. However, it is very important that you return to the emergency department immediately if you began to have worsening difficulty breathing that does not respond to your normal home nebulizers. You are also being sent home on a five-day course of steroids that you should start taking tomorrow. Please also take the antibiotics as prescribed. Please also follow closely with your primary care physician. You should return to emergency department if you develop fever greater than 101, persistent cough, persistent vomiting, pass out, or any other symptoms that are concerning to you. Prescriptions: Prednisone [Deltasone 20 mg Tablet] 40 mg PO DAILY #10 tablet Doxycycline Hyclate [Vibramycin 100 mg Tablet] 100 mg PO BID #14 tablet Referrals: DIANA STRONG DO [Primary Care Provider] - Follow up as needed
--- NOTE | 2019-07-08 11:02 | RADIOLOGY REPORT (SQ) ---
EXAM DESCRIPTION: CHEST 2 VIEWS COMPLETED DATE/TIME: 07/08/2019 10:43 am REASON FOR STUDY: cough/fever COMPARISON: 12/04/2018 TECHNIQUE: Frontal and lateral radiographic views of the chest acquired. NUMBER OF VIEWS: Two view. LIMITATIONS: None. FINDINGS: LUNGS AND PLEURA: No pneumothorax. No consolidation or pleural effusion. MEDIASTINUM AND HILAR STRUCTURES: Stable. HEART AND VASCULAR STRUCTURES: Stable. BONES: No acute findings. HARDWARE: CABG. OTHER: No other significant finding. IMPRESSION: NO ACUTE FINDINGS. TECHNICAL DOCUMENTATION: JOB ID: [id number] 2010 [employer]- All Rights Reserved Reading location - IP/workstation name: [email or web address]
[2019-07-08 11:20] LABS: A TYPE INFLUENZA AG NEGATIVE (NEGATIVE); B INFLUENZA AG NEGATIVE (NEGATIVE)
[2019-07-08] MEDS ORDERED: ALBUTEROL SULFATE HFA (90 MCG/PUFF) 8 GM MDI (1 MDI/ER DISP) IH ONE (11:31)
[2019-07-08 11:37] VITALS: BP 137/82
== END 2019-07-08 11:38 | disposition home or self-care (01) ==
LOC: ER 10:03
DX: J44.1 Chronic obstructive pulmonary disease with (acute) exacerbation (principal); R05 Cough; R50.9 Fever, unspecified; R09.81 Nasal congestion; M79.10 Myalgia, unspecified site; F17.200 Nicotine dependence, unspecified, uncomplicated; I25.10 Atherosclerotic heart disease of native coronary artery without angina pectoris; I10 Essential (primary) hypertension
CPT/HCPCS: 94640; 99283; 87804; 71046; A9270 ×2; J3490; J7620

== ENCOUNTER 2020-04-03 06:43 | Emergency (ER) | payer MEDICARE, OTHER ==
[2020-04-03 08:19] LABS: ABSOLUTE BASOPHILS # (AUTO) 0.1 10^3/uL (0.0-0.2); ABSOLUTE EOSINOPHILS # (AUTO) 0.3 10^3/uL (0.0-0.6); ABSOLUTE LYMPHOCYTES (AUTO) 1.8 10^3/uL (0.5-4.7); ABSOLUTE MONOCYTES (AUTO) 1.4 10^3/uL (0.1-1.4); ABSOLUTE NEUT (AUTO) 7.8 10^3/uL (1.7-8.2); BASOPHILS % (AUTO) 0.5 % (0-2); EOSINOPHILS % (AUTO) 2.3 % (0-6); HEMATOCRIT 44.5 % (37.9-51.0); HEMOGLOBIN 15.7 g/dL (13.5-17.0); LYMPHOCYTES % (AUTO) 15.8 % (13-45); MEAN CORPUSCULAR HEMOGLOBIN 32.3 pg (27.0-33.4); MEAN CORPUSCULAR HGB CONC 35.4 g/dL (32.0-36.0); MEAN CORPUSCULAR VOLUME 91 fl (80-97); MONOCYTES % (AUTO) 12.2 % (3-13); PLATELET COUNT 210 10^3/uL (150-450); RED BLOOD COUNT 4.88 10^6/uL (4.35-5.55); RED CELL DISTRIBUTION WIDTH 13.3 % (11.5-14.0); SEGMENTED NEUTROPHILS % (AUTO) 69.2 % (42-78); TOTAL CELLS COUNTED % (AUTO) 100 %; WHITE BLOOD COUNT 11.2 10^3/uL (4.0-10.5)
[2020-04-03 08:35] LABS: ALBUMIN 4.1 g/dL (3.5-5.0); ALKALINE PHOSPHATASE 137 U/L (38-126); ANION GAP 8 (5-19); ASPARTATE AMINO TRANSFERASE 31 U/L (17-59); BILIRUBIN,DIRECT 0.1 mg/dL (0.0-0.4); BILIRUBIN,TOTAL 0.6 mg/dL (0.2-1.3); BLOOD UREA NITROGEN 7 mg/dL (7-20); CALCIUM 9.5 mg/dL (8.4-10.2); CARBON DIOXIDE 30 mmol/L (22-30); CHLORIDE 102 mmol/L (98-107); GLUCOSE 97 mg/dL (75-110); POTASSIUM 4.2 mmol/L (3.6-5.0); TOTAL PROTEIN 6.7 g/dL (6.3-8.2)
[2020-04-03] MEDS ORDERED: ONDANSETRON HCL INJ/PF 4 MG/2 ML SDV IV ONE (08:58)
[2020-04-03] MEDS ORDERED: NORMAL SALINE 1000 ML 1,000 ML IV ONE (08:58)
--- NOTE | 2020-04-03 09:02 | RADIOLOGY REPORT (SQ) ---
EXAM DESCRIPTION: CHEST SINGLE VIEW IMAGES COMPLETED DATE/TIME: 04/03/2020 8:26 am REASON FOR STUDY: cough congestion difficulty breathing COMPARISON: 07/08/2019 EXAM PARAMETERS: NUMBER OF VIEWS: One view. TECHNIQUE: Single frontal radiographic view of the chest acquired. RADIATION DOSE: NA LIMITATIONS: None. FINDINGS: LUNGS AND PLEURA: Mildly increased interstitial markings at the lung bases, chronic. No f ocal consolidation, pleural effusion, or pneumothorax. MEDIASTINUM AND HILAR STRUCTURES: No masses. Contour normal. HEART AND VASCULAR STRUCTURES: Heart normal in size. Normal vasculature. BONES: No acute finding HARDWARE: Midline surgical changes. Partially imaged cervicothoracic junction ACDF hardware. OTHER: No other significant finding. IMPRESSION: Stable radiographic appearance of the chest. No evidence of acute cardiopulmonary abnor mality. TECHNICAL DOCUMENTATION: JOB ID: [id number] 2010 [employer]- All Rights Reserved Reading location - IP/workstation name: [email or web address]
--- NOTE | 2020-04-03 09:04 | ER Document Report ---
ED General - General Chief Complaint: Shortness Of Breath Stated Complaint: SOB, ACHES Time Seen by Provider: 04/03/20 07:51 Primary Care Provider: DIANA CLANCY DO [Primary Care Provider] - Follow up as needed TRAVEL OUTSIDE OF THE [place] IN LAST 30 DAYS: No - HPI Notes: Chief complaint: Cough, myalgias, weakness, nausea, vomiting and diarrhea History of present illness: 65-year-old male cigarette smoker with history of prior CABG, hypertension hyperlipidemia presents with 2-day history of flulike illness characterized by cough, myalgias, weakness, nausea, vomiting and diarrhea. Patient says he had a temperature of 101 at home this morning. He denies known Covid exposure and says he has been at home by himself with no recent travel. Patient reports production of some scant amounts of white sputum. He denies hemoptysis. He denies chest pain. Patient is followed by Dr. Clancy. Patient has history of an urticarial reaction to ampicillin. - Related Data Allergies/Adverse Reactions: ampicillin [Ampicillin] Allergy (Verified 07/08/19 10:17) Home Medications: metoprolol, atorvastatin, percocet, lyrica, omeprazole, meripex,. baby asa, zanaflex, Past Medical History - General Information source: Patient - Social History Smoking Status: Current Every Day Smoker Frequency of alcohol use: Rare Drug Abuse: None Lives with: Alone Family History: Hypertension - Past Medical History Cardiac Medical History: Reports: Hx Coronary Artery Disease, Hx Hypercholesterolemia, Hx Hypertension, Hx Peripheral Vascular Disease Pulmonary Medical History: Reports: Hx Pneumonia - 2016 Endocrine Medical History: Denies: Hx Diabetes Mellitus Type 1, Hx Diabetes Mellitus Type 2 Renal/ Medical History: Denies: Hx Peritoneal Dialysis GI Medical History: Reports: Hx Gastroesophageal Reflux Disease Past Surgical History: Reports: Hx Cardiac Catheterization, Hx Cardiac Surgery, Hx Coronary Artery Bypass Graft, Hx Open Heart Surgery - TRIPLE BYPASS 11/03, Hx Orthopedic Surgery - Descriptive and cervical spine, Hx Vascular Surgery - Stents to bilateral lower extremities, L. CAROTID ENDARTERECTOMY - Immunizations Hx Diphtheria, Pertussis, Tetanus Vaccination: Yes Review of Systems - Review of Systems Notes: Constitutional: As per HPI. HENT: Negative for sore throat. Eyes: Negative for visual changes. Cardiovascular: Negative for chest pain. Respiratory: As per HPI. Gastrointestinal: As per HPI. Genitourinary: Negative for dysuria. Musculoskeletal: As per HPI. Skin: Negative for rash. Neurological: Negative for headaches, focal weakness or numbness. 10 point ROS negative except as marked above and in HPI. Physical Exam - Vital signs Vitals: Temp Pulse Resp BP Pulse Ox 98.8 F 77 20 138/75 H 99 04/03/20 06:48 04/03/20 06:48 04/03/20 06:48 04/03/20 06:48 04/03/20 06:48 - Notes Notes: GENERAL: Male patient of approximately stated age with rattling cough who seems mildly sleepy. SKIN: Good turgor no rashes. HEAD: Normocephalic atraumatic. EYES: PERRLA. EOMI. Conjunctivae and sclerae clear. EARS: CANALS AND TMS CLEAR. NOSE: CLEAR. MOUTH: Moist mucosa. Good dentition. No stridor or edema. No drooling. NECK: Supple. No masses or thyromegaly. No adenopathy. Carotids 2+ without bruits. No JVD. BACK: Symmetrical without tenderness. CHEST: Respirations unlabored. Rattling cough. Scattered rhonchi bilaterally. HEART: Healed CABG scar midline. Regular rhythm. No murmur gallop or rub. ABDOMEN: Soft nontender without masses, organomegaly or rebound. Bowel sounds normally active. No bruits. GENITALIA: Deferred. EXTREMITIES: No edema. No calf tenderness. Cap refill less than 1.5 seconds. Dorsalis pedis and posterior tibial pulses 3+ and symmetrical. NEUROLOGICAL: GCS 14. Patient is sleepy with eyes closed but opens eyes on command. He is oriented x3. Fluent speech. Cranial nerves II through XII intact. Sensorimotor and cerebellar normal. Normal tone. PSYCHIATRIC: Flat affect. Course - Re-evaluation Re-evalutation: 04/03/20 14:04 This gentleman presented with a flulike illness. He is a heavy cigarette smoker. Past history of CABG. He had had some vomiting and diarrhea and appeared mildly dehydrated on arrival here. He reported low-grade fever at home but was afebrile in the ED. We administered normal saline and also gave him so me Zofran. His EKG showed no acute changes. He did not complain of any chest pain. Chest x-ray showed no infiltrate. Oxygenation was normal. He did have some rhonchi and faint wheezes bilaterally. We gave him 1 DuoNeb treatment and he cleared with this and felt better. He is retaining oral fluids here. COVID- 19 nasal swab has been obtained with results not reported at this time and expected turnaround time for this is of 4872 hours. Patient appears stable for further outpatient management with self-isolation pending results of his Covid testing. His oxygenation here is normal at this time and he is not in any respiratory distress. His CBC, comprehensive metabolic profile in room air arterial blood gas are all normal. Findings, clinical impression and plan of treatment have been discussed with patient. I attempted to contact patient's Ruth Mccrary at and there was no answer. Understanding of current findings and recommendations has been acknowledged by them and there is agreement regarding disposition and follow-up. 04/03/20 14:06 04/03/20 14:09 - Vital Signs Vital signs: Temp Pulse Resp BP Pulse Ox 98.8 F 77 16 102/63 95 04/03/20 06:48 04/03/20 06:48 04/03/20 12:01 04/03/20 12:01 04/03/20 12:01 - Laboratory Result Diagrams: 04/03/20 07:46 04/03/20 07:46 Laboratory results interpreted by me: 04/03/20 04/03/20 04/03/20 07:46 07:46 09:35 WBC 11.2 H Alkaline Phosphatase 137 H Urine Blood SMALL H - Diagnostic Test Radiology reviewed: Image reviewed, Reports reviewed Radiology results interpreted by me: 04/03/20 09:52 Chest X-Ray 04/03/20 08:04 IMPRESSION: Stable radiographic appearance of the chest. No evidence of acute cardiopulmonary abnormality. - EKG Interpretation by Me Additional EKG results interpreted by me: 04/03/20 14:01 Twelve-lead EKG reviewed by me contemporaneously: 1047 hrs. Indication for study: Dyspnea Rhythm: Normal sinus Rate: 70 Intervals: Normal QRS axis: +[address]/T wave changes: None Comparison with prior tracing: Unchanged compared with prior study 12/04/2018 Interpretation: Normal EKG Discharge - Discharge Clinical Impression: COPD exacerbation, Acute viral syndrome, History of coronary artery disease Condition: Stable Disposition: HOME, SELF-CARE Instructions: COVID-19 Guidance for Persons Under Investigation, Viral Syndrome ([facility]) Additional Instructions: Increase oral fluids. Take prescribed medications. Follow-up with your doctor within the next 3 to 5 days. Return here as needed for new or worsening symptoms: Pain that is worsening or unimproved Uncontrolled vomiting High fever or shaking chills Overall worsening Prescriptions: Prednisone [Deltasone 20 mg Tablet] 2 tab PO DAILY 5 Days tablet Doxycycline Monohydrate 100 mg PO BID #20 capsule Albuterol Sulfate [Proair HFA Inhalation Aerosol 8.5 gm MDI] 2 puff IH Q4H PRN #1 mdi PRN Reason: Ondansetron [Zofran Odt 4 mg Tablet] 1 - 2 tab PO Q4H PRN #15 tab.rapdis PRN Reason: For Nausea/Vomiting Referrals: DIANA CLANCY DO [Primary Care Provider] - Follow up as needed
[2020-04-03] MEDS ORDERED: IPRATROPIUM/ALBUTEROL 0.5-2.5 MG/3 ML AMPUL NEB ONE (09:55)
[2020-04-03 10:16] LABS: ARTERIAL BLOOD BASE EXCESS -0.2 mmol/L; ARTERIAL BLOOD FIO2 ROOM AIR; ARTERIAL BLOOD H2CO3 1.14 mmol/L (1.05-1.35); ARTERIAL BLOOD O2 SATURATION 96.1 % (94-98); ARTERIAL BLOOD PCO2 37.8 mmHg (35-45); ARTERIAL BLOOD PH 7.42 (7.35-7.45); ARTERIAL BLOOD PO2 80.2 mmHg (80-100); ARTERIAL BLOOD TOTAL CO2 25.1 mmol/L (23-27)
[2020-04-03 10:26] LABS: APPEARANCE,URINE CLEAR; BILIRUBIN,URINE NEGATIVE (NEGATIVE); COLOR,URINE YELLOW; GLUCOSE, URINE NEGATIVE (NEGATIVE); KETONES,URINE NEGATIVE (NEGATIVE); LEUKOCYTE ESTERASE,URINE NEGATIVE (NEGATIVE); NITRITE,URINE NEGATIVE (NEGATIVE); PROTEIN,URINE NEGATIVE (NEGATIVE); URINE SPECIFIC GRAVITY 1.008; UROBILINOGEN,URINE NEGATIVE mg/dL (<2.0)
[2020-04-03] MEDS ORDERED: KETOROLAC TROMETHAMINE INJ/PF 30 MG/1 ML SDV IV ONE (11:15)
[2020-04-03 14:31] VITALS: BP 122/73
--- NOTE | 2020-04-03 19:03 | EKG REPORT ---
SEVERITY:- NORMAL ECG - SINUS RHYTHM : Confirmed by: Glynn Arellano MD 03-Apr-2020 19:02:56
== END 2020-04-03 14:40 | disposition home or self-care (01) ==
LOC: ER 06:43
DX: J44.1 Chronic obstructive pulmonary disease with (acute) exacerbation (principal); B34.9 Viral infection, unspecified; R05 Cough; M79.10 Myalgia, unspecified site; R53.1 Weakness; R11.2 Nausea with vomiting, unspecified; R19.7 Diarrhea, unspecified; F17.210 Nicotine dependence, cigarettes, uncomplicated; I25.10 Atherosclerotic heart disease of native coronary artery without angina pectoris; E78.5 Hyperlipidemia, unspecified; E78.00 Pure hypercholesterolemia, unspecified; K21.9 Gastro-esophageal reflux disease without esophagitis; I10 Essential (primary) hypertension; Z87.01 Personal history of pneumonia (recurrent); Z95.1 Presence of aortocoronary bypass graft; Z79.899 Other long term (current) drug therapy; Z79.891 Long term (current) use of opiate analgesic; Z79.82 Long term (current) use of aspirin; Z88.0 Allergy status to penicillin; Z20.828 Contact with and (suspected) exposure to other viral communicable diseases
CPT/HCPCS: 93005; 94640; 99285; 96361; 96374; 96375; 36415; 87040; 82803; 85025; 80053; 81001; 71045; 93010; U0003; J1885; J2405; J7030; C9803; 87635

== ENCOUNTER 2020-05-13 15:08 | Emergency (ER) | payer MEDICARE ==
[2020-05-13 15:16] VITALS: BP 123/68
--- NOTE | 2020-05-13 15:58 | ER Document Report ---
ED Medical Screen (RME) - General Chief Complaint: Cough Stated Complaint: CONGESTION Time Seen by Provider: 05/13/20 15:48 Primary Care Provider: DIANA STRONG DO [Primary Care Provider] - Follow up as needed Notes: 65-year-old male who presents since the emergency department for a cough and runny nose. Patient states that one of his grandsons classmates tested positive for COVID-19. Patient denies any fever, body aches, or chills. Exam: Oxygen saturation 97% on room air. I have greeted and performed a rapid initial assessment of this patient. A comprehensive ED assessment and evaluation of the patient, analysis of test results and completion of medical decision making process will be conducted by an additional ED providers. TRAVEL OUTSIDE OF THE [place] IN LAST 30 DAYS: No - Related Data Allergies/Adverse Reactions: ampicillin [Ampicillin] Allergy (Verified 07/08/19 10:17) Past Medical History - Social History Chew tobacco use (# tins/day): No Frequency of alcohol use: None Drug Abuse: None Family history: Reviewed & Not Pertinent - Past Medical History Cardiac Medical History: Reports: Hx Coronary Artery Disease, Hx Hypercholesterolemia, Hx Hypertension, Hx Peripheral Vascular Disease Pulmonary Medical History: Reports: Hx Pneumonia - 2016 Endocrine Medical History: Denies: Hx Diabetes Mellitus Type 1, Hx Diabetes Mellitus Type 2 Renal/ Medical History: Denies: Hx Peritoneal Dialysis GI Medical History: Reports: Hx Gastroesophageal Reflux Disease Past Surgical History: Reports: Hx Cardiac Catheterization, Hx Cardiac Surgery, Hx Coronary Artery Bypass Graft, Hx Open Heart Surgery - TRIPLE BYPASS 11/03, Hx Orthopedic Surgery - Descriptive and cervical spine, Hx Vascular Surgery - Stents to bilateral lower extremities, L. CAROTID ENDARTERECTOMY - Immunizations Hx Diphtheria, Pertussis, Tetanus Vaccination: Yes Physical Exam - Vital signs Vitals: Temp Pulse Resp BP Pulse Ox 98.1 F 64 18 123/68 97 05/13/20 15:15 05/13/20 15:15 05/13/20 15:15 05/13/20 15:15 05/13/20 15:15 Course - Vital Signs Vital signs: Temp Pulse Resp BP Pulse Ox 98.1 F 64 18 123/68 97 05/13/20 15:15 05/13/20 15:15 05/13/20 15:15 05/13/20 15:15 05/13/20 15:15 Doctor's Discharge - Discharge Referrals: DIANA STRONG DO [Primary Care Provider] - Follow up as needed
--- NOTE | 2020-05-13 16:15 | ER Document Report ---
ED General - General Chief Complaint: Cough Stated Complaint: CONGESTION Time Seen by Provider: 05/13/20 15:48 Primary Care Provider: DIANA STRONG DO [Primary Care Provider] - Follow up as needed TRAVEL OUTSIDE OF THE [place] IN LAST 30 DAYS: No - HPI Notes: Patient is a 65-year-old male with a hx of CAD and PAD who presents to the emergency department for COVID testing. Patient states his grandson was exposed at school as one of his classmates tested positive. Patient is concerned as he lives with his grandson, however, he denies any symptoms. He denies chest pain, shortness of breath, vomiting, diarrhea, and fever. - Related Data Allergies/Adverse Reactions: ampicillin [Ampicillin] Allergy (Verified 07/08/19 10:17) Past Medical History - Social History Smoking Status: Current Every Day Smoker Chew tobacco use (# tins/day): No Frequency of alcohol use: None Drug Abuse: None Family History: Hypertension - Past Medical History Cardiac Medical History: Reports: Hx Coronary Artery Disease, Hx Hypercholesterolemia, Hx Hypertension, Hx Peripheral Vascular Disease Pulmonary Medical History: Reports: Hx Pneumonia - 2016 Endocrine Medical History: Denies: Hx Diabetes Mellitus Type 1, Hx Diabetes Mellitus Type 2 Renal/ Medical History: Denies: Hx Peritoneal Dialysis GI Medical History: Reports: Hx Gastroesophageal Reflux Disease Past Surgical History: Reports: Hx Cardiac Catheterization, Hx Cardiac Surgery, Hx Coronary Artery Bypass Graft, Hx Open Heart Surgery - TRIPLE BYPASS 11/03, Hx Orthopedic Surgery - Descriptive and cervical spine, Hx Vascular Surgery - Stents to bilateral lower extremities, L. CAROTID ENDARTERECTOMY - Immunizations Hx Diphtheria, Pertussis, Tetanus Vaccination: Yes Physical Exam - Vital signs Vitals: Temp Pulse Resp BP Pulse Ox 98.1 F 64 18 123/68 97 05/13/20 15:15 05/13/20 15:15 05/13/20 15:15 05/13/20 15:15 05/13/20 15:15 Course - Re-evaluation Re-evalutation: Patient is an 65-year-old male with a hx of CAD and PAD who presents to the emergency department for COVID-19 testing after potential exposure. He denies any symptoms at this point, including chest pain, shortness of breath, vomiting, and fever. Vital signs are within normal limits. On exam, lungs are clear to auscultation bilaterally and his heart has a regular rate and rhythm. Chest XR ordered in up in triage but patient declining as he is completely asymptomatic. COVID-19 swab done here in the ED. Patient instructed that the test typically results in 2 to 3 days and he will be notified by phone with her results. Patient advised to quarantine until he is aware of his results. Return precautions and follow-up instructions given. Patient understands and is in agreement with the plan. Patient will be discharged home. - Vital Signs Vital signs: Temp Pulse Resp BP Pulse Ox 98.1 F 64 18 123/68 97 05/13/20 15:15 05/13/20 15:15 05/13/20 15:15 05/13/20 15:15 05/13/20 15:15 - Laboratory Results Critical Laboratory Results Reviewed: No Critical Results - Radiology Results Critical Radiology Results Reviewed: No Critical Results Discharge - Discharge Clinical Impression: Exposure to COVID-19 virus Condition: Stable Disposition: HOME, SELF-CARE Instructions: COVID-19 Guidance for Persons Under Investigation Referrals: DIANA STRONG DO [Primary Care Provider] - Follow up as needed
== END 2020-05-13 16:42 | disposition home or self-care (01) ==
LOC: ER 15:08
DX: Z20.828 Contact with and (suspected) exposure to other viral communicable diseases (principal); I25.10 Atherosclerotic heart disease of native coronary artery without angina pectoris; I10 Essential (primary) hypertension; E11.51 Type 2 diabetes mellitus with diabetic peripheral angiopathy without gangrene; F17.200 Nicotine dependence, unspecified, uncomplicated; Z88.0 Allergy status to penicillin
CPT/HCPCS: 99283; U0003; C9803; 87635

== ENCOUNTER 2020-06-19 15:27 | Emergency (ER) | payer MEDICARE ==
[2020-06-19 16:03] VITALS: BP 144/72
--- NOTE | 2020-06-19 16:17 | ER Document Report ---
ED Extremity Problem, Upper - General Stated Complaint: LACERATION Time Seen by Provider: 06/19/20 16:10 Primary Care Provider: DIANA STRONG DO [Primary Care Provider] - Follow up as needed Mode of Arrival: Ambulatory Information source: Patient TRAVEL OUTSIDE OF THE [place] IN LAST 30 DAYS: No - HPI Patient complains to provider of: Right, Arm Notes: Patient with complaints of right arm injury. The patient states he was putting a TV in the back of his trunk. The trunk was being held open with a stick. He accidentally hit the stick and the trunk lid fell onto his right arm. He sustained some lacerations and abrasions of the right forearm and right hand. Complaining of some mild pain to this area. Pain is constant, worse with movement, better with rest. He denies any numbness, tingling, weakness. Bleeding is controlled. No fever. No chest pain or shortness of breath. Tetanus is up-to-date. No nausea, vomiting, diarrhea. He denies any other injuries or complaints at this time. - Related Data Allergies/Adverse Reactions: ampicillin [Ampicillin] Allergy (Verified 06/19/20 16:09) Past Medical History - Social History Smoking Status: Current Every Day Smoker Frequency of alcohol use: None Drug Abuse: None Family History: Hypertension - Past Medical History Cardiac Medical History: Reports: Hx Coronary Artery Disease, Hx Hypercholesterolemia, Hx Hypertension, Hx Peripheral Vascular Disease Pulmonary Medical History: Reports: Hx Pneumonia - 2016 Endocrine Medical History: Denies: Hx Diabetes Mellitus Type 1, Hx Diabetes Mellitus Type 2 Renal/ Medical History: Denies: Hx Peritoneal Dialysis GI Medical History: Reports: Hx Gastroesophageal Reflux Disease Past Surgical History: Reports: Hx Cardiac Catheterization, Hx Cardiac Surgery, Hx Coronary Artery Bypass Graft, Hx Open Heart Surgery - TRIPLE BYPASS 11/03, Hx Orthopedic Surgery - Descriptive and cervical spine, Hx Vascular Surgery - Stents to bilateral lower extremities, L. CAROTID ENDARTERECTOMY - Immunizations Hx Diphtheria, Pertussis, Tetanus Vaccination: Yes Review of Systems - Review of Systems -: Yes All other systems reviewed and negative Physical Exam - Vital signs Vitals: Temp Pulse Resp BP Pulse Ox 98.4 F 64 16 144/72 H 98 06/19/20 16:02 06/19/20 16:02 06/19/20 16:02 06/19/20 16:02 06/19/20 16:02 - Notes Notes: GENERAL: alert, cooperative, nontoxic, no distress. HEAD: normocephalic, atraumatic EYES: conjunctiva pink without discharge, no external redness or swelling. EARS: no external swelling, no external redness NOSE: atraumatic, no external swelling MOUTH/THROAT: mucous membranes moist and pink NECK: soft, supple, full range of motion, no meningismus. CHEST: no distress, expiratory wheezing throughout. CARDIAC: regular rate and rhythm, no murmur EXTREMITIES: full range of motion of all extremities. No redness, no swelling. Skin tear/laceration to the dorsal mid forearm. Several superficial abrasions to the distal forearm and the dorsum of the hand. No swelling. Minimal tenderness to palpation. Normal pulse and sensation distally. Wrist exam is normal. No snuffbox tenderness. Full range of motion of the hand. Normal elbow exam. No redness or drainage. Compartments are soft. NEURO: alert and oriented 3, no focal deficits, full range of motion of all extremities. PYSCH: appropriate mood, affect. Patient is cooperative. SKIN: pink, warm, dry, no rash. Course - Re-evaluation Re-evalutation: 06/19/20 18:04 Patient resting comfortably at this time. Of gone over x-ray results with the patient. Questions have been answered. Will discharge home. Patient is nontoxic-appearing with stable vitals. Here with complaints of injury to his right forearm and hand. He was putting a TV into his trunk. His trunk lid was being held up by a stick. He accidentally knocked the stick out of the way and the trunk hit him in the forearm and the hand. Patient noted to have some skin tears to the forearm wrist and hand. There is no deep laceration that required suture repair. I debrided all the skin from the skin tears, the wounds were cleaned and a sterile dressing was applied. Patient's x-rays were negative for fracture or foreign body. Patient will be discharged home with instructions to clean the wound twice a day with soap and water. Apply antibiotic ointment. Follow-up for increasing pain, fever, redness, drainage, any further concerns. The patient's emergency department workup and current diagnosis were explained to the patient and or family. Follow-up instructions were provided. Medications if prescribed were discussed. Instructions for when to return to the emergency department including specific worrisome symptoms were discussed with the patient and/or family. - Vital Signs Vital signs: Temp Pulse Resp BP Pulse Ox 98.4 F 64 16 144/72 H 98 06/19/20 16:02 06/19/20 16:02 06/19/20 16:02 06/19/20 16:02 06/19/20 16:02 - Laboratory Results Critical Laboratory Results Reviewed: No Critical Results - Radiology Results Critical Radiology Results Reviewed: No Critical Results Discharge - Discharge Clinical Impression: Skin tear, Contusion of right forearm, initial encounter Condition: Stable Disposition: HOME, SELF-CARE Instructions: Antibiotic Ointment Protection ([facility]), Contusion ([facility]), Skin Tear ([facility]) Additional Instructions: Clean wounds twice a day with soap and water. Apply a thin layer of antibiotic ointment. Cover wounds. Follow-up for increased pain, fever, redness, drainage, any further concerns. Referrals: DIANA STRONG DO [Primary Care Provider] - Follow up as needed
--- NOTE | 2020-06-19 16:52 | RADIOLOGY REPORT (SQ) ---
EXAM DESCRIPTION: HAND RIGHT 3 VIEWS IMAGES COMPLETED DATE/TIME: 06/19/2020 4:41 pm REASON FOR STUDY: trunk shut on arm COMPARISON: None. EXAM PARAMETERS: NUMBER OF VIEWS: Three views. TECHNIQUE: AP, lateral and oblique radiographic images acquired of the right hand. LIMITATIONS: None. FINDINGS: MINERALIZATION: Normal. BONES: No acute fracture or dislocation. No worrisome bone lesions. JOINTS: No effusions. SOFT TISSUES: No soft tissue swelling. No foreign body. OTHER: No other significant finding. IMPRESSION: NEGATIVE STUDY OF THE RIGHT HAND. NO RADIOGRAPHIC EVIDENCE OF ACUTE INJURY. TECHNICAL DOCUMENTATION: JOB ID: [id number] 2010 [employer]- All Rights Reserved Reading location - IP/workstation name: [email or web address]
--- NOTE | 2020-06-19 16:52 | RADIOLOGY REPORT (SQ) ---
EXAM DESCRIPTION: FOREARM RIGHT IMAGES COMPLETED DATE/TIME: 06/19/2020 4:41 pm REASON FOR STUDY: trunk shut on arm COMPARISON: None. NUMBER OF VIEWS: Two views. TECHNIQUE: Two radiographic images acquired of the right forearm, including elbow and wrist in at le ast one projection. LIMITATIONS: None. FINDINGS: MINERALIZATION: Normal. BONES: No acute fracture. No worrisome bone lesions. SOFT TISSUES: Soft tissue injury. No foreign body. OTHER: No other significant finding. IMPRESSION: SOFT TISSUE INJURY. NO FOREIGN BODY. NO FRACTURE. TECHNICAL DOCUMENTATION: JOB ID: [id number] 2010 [employer]- All Rights Reserved Reading location - IP/workstation name: [email or web address]
[2020-06-19] MEDS ORDERED: LIDOCAINE 1% INJ-PF (10 MG/ML) 30 ML SDV INJ ONE (17:14)
--- OUTSIDE RECORDS SUMMARY | 2020-06-19 17:59 | XMS REPORT ---
:1955 Author Organization [facility] Address [facility] [address] [place] [address] Care Team Providers Name Role Phone Julieth Attending Clinician Unavailable Owen Attending Clinician Unavailable Julieth Attending Clinician Unavailable Christiano ZHAO Attending Clinician Unavailable Chago Cruz Attending Clinician Unavailable Allergies, Adverse Reactions, Alerts Allergy Name Allergy Status Severity Reaction(s) Onset Inactive Treat ing Comments Type Date Date Clinician AMPICILLIN Drug Active Unknown 2019-07 allergy - 00:00:0 0 AMPICILLIN Drug Active 2013-11 allergy 00:00:0 0 Medications This patient has no known medications. Problems This patient has no known problems. Procedures Procedure Date / Time Performed Performing Clinician Tish briones OFFICE/OUTPATIENT VISIT EST 2019-11-01 10:00:00 OFFICE/OUTPATIENT VISIT, [facility] 2019-07-20 10:05:00 OFFICE/OUTPATIENT VISIT EST 2019-07-04 08:00:00 OFFICE/OUTPATIENT VISIT EST 2019-05-02 08:00:00 DSCH[facility] MED/CURRENT MED MERGE 2019-03-03 11:15:00 OFFICE/OUTPATIENT VISIT EST 2019-03-03 11:15:00 BEHAV CHNG SMOKING 3-10 MIN 2019-03-03 11:15:00 DSCHRG MED/CURRENT MED MERGE 2019-01-04 13:00:00 OFFICE/OUTPATIENT VISIT EST 2019-01-04 13:00:00 OFFICE/OUTPATIENT VISIT EST 2018-11-02 13:00:00 OFFICE/OUTPATIENT VISIT EST 2018-07-06 13:30:00 OFFICE/OUTPATIENT VISIT EST 2018-05-03 13:00:00 OFFICE/OUTPATIENT VISIT EST 2018-03-03 08:00:00 OFFICE/OUTPATIENT VISIT EST 2018 11:15:00 MEASURE BLOOD OXYGEN LEVEL 2017-11-03 13:00:00 OFFICE/OUTPATIENT VISIT EST 2017-11-03 13:00:00 OFFICE/OUTPATIENT VISIT EST 2017-07-02 09:15:00 OFFICE/OUTPATIENT VISIT EST 2017-03-02 09:45:00 OFFICE/OUTPATIENT VISIT EST 2017-01-01 10:00:00 OFFICE/OUTPATIENT VISIT EST 2016-09-30 10:00:00 OFFICE/OUTPATIENT VISIT, EST 2015-02-26 11:45:00 ROUTINE VENIPUNCTURE 2015-02-26 11:45:00 LIPID PANEL 2015-02-26 11:45:00 Psa, total screening 2015-02-26 11:45:00 COMPREHEN METABOLIC PANEL 2015-02-26 11:45:00 ASSAY OF CK (CPK) 2015-02-26 11:45:00 OFFICE/OUTPATIENT VISIT, EST 2014-02-06 11:15:00 OFFICE/OUTPATIENT VISIT, [facility] 2013-12-26 10:30:00 Results Test Description Test Time Test Comments Text Results Atomic Results Result Comments SARS-CoV-2 RNA Resp Ql MELVIN+probe 2020-04-04 00:00:00 Test Item Value Reference Range Comments SARS-CoV-2 RNA Resp Ql MELVIN+probe Not detected [facility] Case ID: (test code = 13805-4) [id number] COMPREHENSIVE METABOLIC [id number] 10:50:00 Test Item Value Reference Range Comments AST (test code = 32713619) 18 U/L 10-35 GLOBULIN (test code = 66114117) 2.6 g/dL (calc) 1.9-3.7 CREATININE (test code = 94525551) 0.98 mg/dL 0.70-1.25 CHLORIDE (test code = 70662793) 100 mmol/L 98-110 ALKALINE PHOSPHATASE (test code = 128 U/L 35-144 62562277) eGFR NON-AFR. EQUATORIAL GUINEAN (test code = 82 mL/min/1.73m2 > OR = 60 46852387) CALCIUM (test code = 68120519) 9.5 mg/dL 8.6-10.3 ALBUMIN/GLOBULIN RATIO (test code = 1.6 (calc) 1.0-2.5 65221342) PROTEIN, TOTAL (test code = 40011707) 6.8 g/dL 6.1-8.1 BUN/CREATININE RATIO (test code = NOT APPLICABLE (calc) 6-22 51693897) UREA NITROGEN (BUN) (test code = 11 mg/dL 7-25 55119185) GLUCOSE (test code = 23041037) 109 mg/dL 65-99 ALT (test code = 67928174) 17 U/L 9-46 BILIRUBIN, TOTAL (test code = 0.9 mg/dL 0.2-1.2 18806708) POTASSIUM (test code = 96949932) 4.0 mmol/L 3.5-5.3 eGFR (test code = 95 mL/min/1.73m2 > OR = 60 45080887) ALBUMIN (test code = 82681580) 4.2 g/dL 3.6-5.1 SODIUM (test code = 22556362) 138 mmol/L 135-146 CARBON DIOXIDE (test code = 87647581) 29 mmol/L 20-32 HEMOGLOBIN A1c WITH [id number] 10:50:00 Test Item Value Reference Range Comments eAG (mmol/L) (test code = 69913941) 6.2 (calc) HEMOGLOBIN A1c (test code = 4548-4) 5.5 % of total Hgb <5.7 eAG (mg/dL) (test code = 21755501) 111 (calc) CBC (INCLUDES DIFF/PLT)2019-12-21 10:50:00 Test Item Value Reference Range Comments LYMPHOCYTES (test code = 66648194) 24.7 % ABSOLUTE EOSINOPHILS (test code = 21862543) 269 cells/uL 15-5 00 PLATELET COUNT (test code = 14274714) 246 Thousand/uL 140-400 RED BLOOD CELL COUNT (test code = 29601100) 5.08 Million/uL 4.20 -5.80 MCH (test code = 43074452) 32.3 pg 27.0-33.0 ABSOLUTE MONOCYTES (test code = 16581371) 689 cells/uL 200-95 0 MCHC (test code = 38795556) 34.6 g/dL 32.0-36.0 RDW (test code = 54136400) 12.7 % 11.0-15.0 ABSOLUTE LYMPHOCYTES (test code = 59855558) 2075 cells/uL 850- 3900 NEUTROPHILS (test code = 55081343) 63.1 % MONOCYTES (test code = 00358346) 8.2 % HEMOGLOBIN (test code = 32321495) 16.4 g/dL 13.2-17.1 MCV (test code = 38593970) 93.3 fL 80.0-100.0 MPV (test code = 89032752) 12.3 fL 7.5-12.5 BASOPHILS (test code = 63367960) 0.8 % WHITE BLOOD CELL COUNT (test code = 8.4 Thousand/uL 3.8-10.8 43336918) ABSOLUTE BASOPHILS (test code = 11868231) 67 cells/uL 0-200 HEMATOCRIT (test code = 42145468) 47.4 % 38.5-50.0 ABSOLUTE NEUTROPHILS (test code = 44084784) 5300 cells/uL 1500 -7800 EOSINOPHILS (test code = 04056529) 3.2 % [id number] 10:50:004.68LIPID PANEL WITH REFLEX TO DIRECT [id number] 10:50:00 Test Item Value Reference Range Comments TRIGLYCERIDES (test code = 46866566) 107 mg/dL <150 NON HDL CHOLESTEROL (test code = 14140869) 90 mg/dL (calc) <130 CHOL/HDLC RATIO (test code = 94182899) 4.1 (calc) <5.0 CHOLESTEROL, TOTAL (test code = 70571900) 119 mg/dL <200 LDL-CHOLESTEROL (test code = 00441277) 71 mg/dL (calc) HDL CHOLESTEROL (test code = 19811502) 29 mg/dL > OR = 40 Hemoglobin A1C\S\2019-01-04 13:00:00 Test Item Value Reference Range Comments HgbA1C, Fingerstick (test code = 4548-4) 5.7 % 4-5.6 LIPID PANEL WITH REFLEX TO DIRECT [id number] 14:40:00 Test Item Value Reference Range Comments TRIGLYCERIDES (test code = 25236990) 125 mg/dL <150 CHOLESTEROL, TOTAL (test code = 56870116) 113 mg/dL <200 HDL CHOLESTEROL (test code = 01920974) 30 mg/dL >40 CHOL/HDLC RATIO (test code = 54673975) 3.8 (calc) <5.0 LDL-CHOLESTEROL (test code = 34411124) 62 mg/dL (calc) NON HDL CHOLESTEROL (test code = 95409135) 8383 mg/dL (calc) <13 0 COMPREHENSIVE METABOLIC [id number] 14:40:00 Test Item Value Reference Range Comments eGFR NON-AFR. EQUATORIAL GUINEAN (test code = 72 mL/min/1.73m2 > OR = 60 84686202) GLOBULIN (test code = 40301533) 2.6 g/dL (calc) 1.9-3.7 AST (test code = 43349382) 16 U/L 10-35 CARBON DIOXIDE (test code = 83267355) 31 mmol/L 20-32 ALBUMIN (test code = 27741885) 4.0 g/dL 3.6-5.1 ALT (test code = 80904311) 14 U/L 9-46 ALBUMIN/GLOBULIN RATIO (test code = 1.5 (calc) 1.0-2.5 80642065) PROTEIN, TOTAL (test code = 03597584) 6.6 g/dL 6.1-8.1 eGFR (test code = 83 mL/min/1.73m2 > OR = 60 98702488) BUN/CREATININE RATIO (test code = 35713343) 55 (calc) 6-22 POTASSIUM (test code = 43382216) 4.74.7 mmol/L 3.5-5.3 CHLORIDE (test code = 58401643) 990717 mmol/L 98-110 UREA NITROGEN (BUN) (test code = 96595365) 5 mg/dL 7-25 GLUCOSE (test code = 47008158) 91 mg/dL 65-99 CALCIUM (test code = 00048948) 9.6 mg/dL 8.6-10.3 CREATININE (test code = 20425129) 1.10 mg/dL 0.70-1.25 ALKALINE PHOSPHATASE (test code = 85714946) 123 U/L 40-1 15 BILIRUBIN, TOTAL (test code = 12996991) 0.9 mg/dL 0.2-1.2 SODIUM (test code = 32032503) 130799 mmol/L 135-146 PSA, [id number] 14:40:[id number] 14:40:003.73CBC (INCLUDES DIFF/PLT)2018-05-03 14:40:00 Test Item Value Reference Range Comments WHITE BLOOD CELL COUNT (test code = 9.1 Thousand/uL 3.8-10.8 32233818) HEMATOCRIT (test code = 28456031) 47.8 % 38.5-50.0 ABSOLUTE MONOCYTES (test code = 36382261) 837 cells/uL 200-95 0 MCV (test code = 98358035) 89.0 fL 80.0-100.0 MPV (test code = 14391673) 12.0 fL 7.5-12.5 LYMPHOCYTES (test code = 89821362) 30.6 % MCHC (test code = 05441903) 34.1 g/dL 32.0-36.0 ABSOLUTE EOSINOPHILS (test code = 21103770) 264 cells/uL 15-5 00 HEMOGLOBIN (test code = 09261117) 16.3 g/dL 13.2-17.1 ABSOLUTE BASOPHILS (test code = 01894863) 46 cells/uL 0-200 EOSINOPHILS (test code = 14512298) 2.9 % PLATELET COUNT (test code = 42189881) 257 Thousand/uL 140-400 NEUTROPHILS (test code = 04020977) 56.8 % MONOCYTES (test code = 44456993) 9.2 % RED BLOOD CELL COUNT (test code = 43431962) 5.37 Million/uL 4.20 -5.80 BASOPHILS (test code = 42366278) 0.5 % ABSOLUTE LYMPHOCYTES (test code = 26110109) 2785 cells/uL 850- 3900 ABSOLUTE NEUTROPHILS (test code = 39573346) 5169 cells/uL 1500 -7800 MCH (test code = 63991758) 30.4 pg 27.0-33.0 RDW (test code = 06128118) 13.0 % 11.0-15.0 Marijuana Metabolite, Quant, [id number] 13:55:00 Test Item Value Reference Range Comments Marijuana Metabolite, Quant, U (test code = 1197 ng/mL <5 006386) Oxycodone Quant, [id number] 13:55:00 Test Item Value Reference Range Comments Noroxycodone (test code = 458524) 168 ng/mL <50 Oxymorphone (test code = 195224) 95 ng/mL <50 Oxycodone (test code = 572988) NEGATIVE ng/mL <50 Prescription Abuse Monitoring/[id number] 13:55:00 Test Item Value Reference Range Comments Opiates (test code = 904199) NEG ng/mL Cutoff:100 Propoxyphene Screen (test code = 424254) NEG ng/mL Cutoff: 300 Oxycodone (test code = 014273) PPS ng/mL Cutoff:100 Barbiturates (test code = 129605) NEG ng/mL Cutoff:200 Amphetamine/Meth (test code = 306776) NEG ng/mL Cutoff:500 Buprenorphine (test code = 322967) NEG ng/mL Cutoff:10 Cannabinoids (test code = 306584) PPS ng/mL Cutoff:50 Creatinine, Urine (test code = 914698) 83.70 mg/dL >20.0 Methadone (test code = 300297) NEG ng/mL Cutoff:300 Cocaine Metabolite (test code = 700691) NEG ng/mL Cutoff:1 50 Benzodiazepines (test code = 557670) NEG ng/mL Cutoff:100 PSA [id number] 12:13:00 Test Item Value Reference Range Comments PSA (test code = PSA) 0.4 NG/ML 0.0-4.0 CHEM [id number] 12:11:00 Test Item Value Reference Range Comments CR (test code = CR) 1.2 MG/DL 0.4-1.3 BUN (test code = BUN) 13 MG/DL 7-18 ALT (test code = ALT) 44 U/L 9-61 BILT (test code = BILT) 0.8 MG/DL 0.1-1.0 NA (test code = NA) 140 MMOL/L 135-145 BUN/CREAT RATIO (test code = BUN/CREAT RATIO) 11 10 -14 ALB (test code = ALB) 3.9 G/DL 3.2-4.7 CA (test code = CA) 9.1 MG/DL 8.5-10.1 CO2 (test code = CO2) 23.1 MMOL/L 21.0-32.0 GLU (test code = GLU) 78 MG/DL 70-110 AST (test code = AST) 32 U/L 9-37 ION GAP (test code = ION GAP) 17 4-16 CL (test code = CL) 104 MMOL/L 98-110 TP (test code = TP) 7.8 G/DL 6.9-8.5 K (test code = K) 4.2 MMOL/L 3.5-5.1 GLOB (test code = GLOB) 3.9 1.9-4.5 EGFRAA (test code = EGFRAA) 79.79 >60.00 EGFR (test code = EGFR) 65.83 >60.00 ALK PHOS (test code = ALK PHOS) 129 U/L 50-136 CK [id number] 12:11:00 Test Item Value Reference Range Comments CKT (test code = CKT) 200 U/L 39-308 LIPID [id number] 12:11:00 Test Item Value Reference Range Comments CHOL (test code = CHOL) 123 MG/DL 140-200 DLDL (test code = DLDL) 74 MG/DL 100-130 TGL (test code = TGL) 101 MG/DL 30-200 CHD (test code = CHD) 22.76 HDL (test code = HDL) 28 MG/DL 32-96 Assessments Condition Name Status Diagnosis Date Treating Clinici an Spondyls w/o myelopathy or radiculopathy, Active lumbosacr region Other spondylosis with radiculopathy, Active cervical 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 Peripheral vascular disease, unspecified Active Pain in thoracic spine Active Wedge compression fracture of T11-T12 Active vertebra, init Arthropathy, unspecified Active Low back pain Active Spondyls w/o myelopathy or radiculopathy, Active lumbosacr region Peripheral vascular disease, unspecified Active 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 Major depressive disorder, single episode, Active moderate Spondylosis w/o myelopathy or radiculopathy, Active cervical region Spondyls w/o myelopathy or radiculopathy, Active lumbosacr region Peripheral vascular disease, unspecified Active Body mass index (BMI) 27.0-27.9, adult Active Spondyls w/o myelopathy or radiculopathy, Active lumbosacr region Radiculopathy, lumbar region Active Unsp adverse effect of drug or medicament, Active init encntr Nicotine dependence, unspecified, Active uncomplicated Other intervertebral disc degeneration, Active lumbosacral region Spondylosis w/o myelopathy or radiculopathy, Active cervical 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 Hyperglycemia, unspecified Active Other intervertebral disc degeneration, Active lumbosacral region Spondylosis w/o myelopathy or radiculopathy, Active cervical region Precordial pain Active Tension-type headache, unspecified, Active intractable Other intervertebral disc degeneration, Active lumbosacral region Male erectile dysfunction, unspecified Active Tobacco use Active Body mass index (BMI) 27.0-27.9, adult Active Other intervertebral disc degeneration, 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 Primary insomnia Active Encounter for immunization Active Other intervertebral disc degeneration, Active lumbosacral region Pain in right shoulder Active 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 Body mass index (BMI) 28.0-28.9, adult Active Other intervertebral disc degeneration, Active lumbosacral region Ingrowing nail Active 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 Impacted cerumen, right ear Active Other intervertebral disc degeneration, 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 Ingrowing nail Active Body mass index (BMI) 28.0-28.9, adult Active Other intervertebral disc degeneration, 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 Overweight Active Body mass index (BMI) 28.0-28.9, adult Active Other intervertebral disc degeneration, Active lumbosacral region Cellulitis of face Active Impacted cerumen, right ear Active Body mass index (BMI) 27.0-27.9, adult Active Other intervertebral disc degeneration, Active lumbosacral region Other cervical disc degeneration, unsp Active cervical region Personal history of nicotine dependence Active Pain in left finger(s) Active 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, Active lumbosacral region Peripheral vascular disease, unspecified Active Localized edema Active Syndrome - Restless Leg Active Hyperlipidemia (Unspecified) Active Screening - Ca (Prostate) Active Esophageal Reflux Active Depression - NOS Active Hyperlipidemia (Unspecified) Active Disease - Peripheral Vascular (Unspecified) Active Syndrome - Restless Leg Active 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 - Intestinal due to clostridium Active difficile Pain - Abdominal (Unspecified Site) Active Esophageal Reflux Active Encounters Start End Encounter Admission Attending Care Care Encounter Date/Time Date/Time Type Type Clinicians Facility Department ID 2019-11-01 2019-11-01 Outpatient [facility] E [id number] 10:00:00 10:00:00 Shukri Children [id number] s [id number] and [id number] [facility], 2019-07-20 2019-07-20 Outpatient [facility] [id number]-3 10:05:00 10:05:00 Jl Orthopedics [id number] \T\ Sports [id number] [facility] [id number] 2019-07-04 2019-07-04 Outpatient [facility] 0 [id number] 08:00:00 08:00:00 Shukri Children [id number] s [id number] and [id number] [facility], 2019-05-02 2019-05-02 Outpatient [facility] 6 [id number] 08:00:00 08:00:00 Shukri Children [id number] s [id number] and [id number] [facility], 2019-03-03 2019-03-03 Outpatient [facility] 4 [id number] 11:15:00 11:15:00 Shukri Children???s [id number] and [id number] [facility] [id number] Clini 2019-01-04 2019-01-04 Outpatient [facility] 1 [id number] 13:00:00 13:00:00 Shukri Children???s [id number] and [id number] [facility] CDFEDE Clini 2018-11-02 2018-11-02 Outpatient [facility] A [id number] 13:00:00 13:00:00 Shukri Children [id number] s [id number] and [id number] [facility], 2018-07-06 2018-07-06 Outpatient [facility] 6 [id number] 13:30:00 13:30:00 Shukri Children [id number] s [id number] and [id number] [facility] [place] 2018-05-03 2018-05-03 [id number] 13:00:00 13:00:00 Shukri Urbina [id number] s [id number] and [id number] [facility] [place] 2018-03-03 2018-03-03 [facility] [id number] 08:00:00 08:00:00 Shukri Urbina [id number] s [id number] and [id number] [facility] 2018 2018 Outpatient Julieth [facility] E [id number] 11:15:00 11:15:00 Shukri Urbina [id number] s [id number] and [id number] [facility] [place] 2017-11-03 2017-11-03 Outpatient Julieth [facility] B [id number] 13:00:00 13:00:00 Shukri Urbina [id number] s [id number] and [id number] [facility] [place] 2017-07-02 2017-07-02 [facility] [id number] 09:15:00 09:15:00 Shukri Urbina [id number] s [id number] and [id number] [facility] [place] 2017-03-02 2017-03-02 Outpatient Julieth [facility] C [id number] 09:45:00 09:45:00 Shukri Urbina [id number] s [id number] and [id number] [facility] [place] 2017-01-01 2017-01-01 [facility] [id number] 10:00:00 10:00:00 Shukri Urbina [id number] s [id number] and [id number] [facility] [place] 2016-09-30 2016-09-30 [facility] [id number] 10:00:00 10:00:00 Shukri Urbina [id number] s [id number] and [id number] [facility] [place] 2015-02-26 2015-02-26 Outpatient Christiano ZHAO, IAN Cruz [id number] 11:45:00 11:45:00 [facility] [id number] [facility], [id number] [employer] [id number] 7098-09-09 2014-02-06 Outpatient Bundle MILAGROS IAN Cruz [id number] 11:15:00 11:15:00 [facility] [id number] [facility], [id number] [employer] [id number] 2013-12-26 2013-12-26 Outpatient Bundle MILAGROS IAN Cruz [id number]-D 10:30:00 10:30:00 [facility] [id number] [facility], [id number] 0 [employer] [id number] Social History This patient has no known social history. Vital Signs This patient has no known vital signs.
== END 2020-06-19 18:45 | disposition home or self-care (01) ==
LOC: ER 15:27
DX: S51.811A Laceration without foreign body of right forearm, initial encounter (principal); S61.411A Laceration without foreign body of right hand, initial encounter; S61.519A Laceration without foreign body of unspecified wrist, initial encounter; W23.0XXA Caught, crushed, jammed, or pinched between moving objects, initial encounter; Y93.89 Activity, other specified; I25.10 Atherosclerotic heart disease of native coronary artery without angina pectoris; I10 Essential (primary) hypertension; Z95.5 Presence of coronary angioplasty implant and graft
CPT/HCPCS: 99283